=== PATIENT | male | born 2000 | race Caucasian/White ===

== ENCOUNTER 2023-10-08 03:56 | Emergency (ER) | payer OTHER, SELFPAY ==
[2023-10-08 04:42] VITALS: BP 132/88
--- NOTE | 2023-10-08 05:34 | ED.GENMED ---
History of Present Illness
<Bipin Zarco DO - Last Filed: 10/08/23 05:41>
General
Chief Complaint: Sleep Disturbances
Source: patient
Exam Limitations: none
Time Seen by Provider: 10/08/23 05:17
History of Present Illness
History of Present Illness:
Pleasant 23-year-old male presents with anxiety. He states that he has not slept in a few days. Patient has not eaten or drink anything in several hours. Patient states that he has had a poor appetite. He was seen by [facility] earlier this evening.
Patient denies suicidal homicidal ideation, intent, or plan. He is requesting food and water since he has not eaten. He reports no other complaints at this time. Denies chest pain or shortness of breath. Denies any abdominal pain.
Past History
<ST JulioID - Last Filed: >
Past History
ED Past Medical History: Psychiatric (Mood disorder, autism, intermittent violent behavior issues, Anxiety, ODD, ) and Other (Asperger's syndrome)
ED Past Surgical History: None
Social History
Tobacco: Non-smoker
Alcohol: None
Drug: None
Personal: Single
Living: with family
Employment: Not employed
Family History
Family History: Other (Noncontributory)
Phy Exam
<Bipin Zarco DO - Last Filed: 10/08/23 05:41>
General Physical Exam
General Presentation: mild distress
General age: appears older than age
General Habitus: poor hygiene
General Mental: alert
General Hydration: appears well hydrated
Cardiovascular Exam
Cardiovascular Exam: regular rate/rhythm and no edema
Pulmonary Exam
Pulmonary Exam: lungs clear, no respiratory distress and no cough
Gastrointestinal Exam
Gastrointestinal Exam: normal bowel sounds, non tender and soft
Neurological Exam
Neurological Exam: alert and oriented x3
Musculoskeletal Exam
Musculoskeletal Exam: full ROM, no edema and neuro vasc intact
Skin Exam
Skin Exam: normal color and warm/dry
Psychiatric Exam
Psychiatric Exam: anxious and paranoia
Course
<Bipin Zarco DO - Last Filed: 10/08/23 05:41>
Vital Signs
Initial and Last Documented VS:
Initial Vital Signs
Temp Pulse Resp BP Pulse Ox
98.7 F 99 17 132/88 96
10/08/23 04:42 10/08/23 04:42 10/08/23 04:42 10/08/23 04:42 10/08/23 04:42
Last Documented Vital Signs
Temp Pulse Resp BP Pulse Ox
98.7 F 99 17 132/88 96
10/08/23 04:42 10/08/23 04:42 10/08/23 04:42 10/08/23 04:42 10/08/23 04:42
<ALFRED Kim - Last Filed: >
Vital Signs
Initial and Last Documented VS:
Initial Vital Signs
Temp Pulse Resp BP Pulse Ox
98.7 F 99 17 132/88 96
10/08/23 04:42 10/08/23 04:42 10/08/23 04:42 10/08/23 04:42 10/08/23 04:42
Last Documented Vital Signs
Temp Pulse Resp BP Pulse Ox
98.7 F 99 17 132/88 96
10/08/23 04:42 10/08/23 04:42 10/08/23 04:42 10/08/23 04:42 10/08/23 04:42
<Bipin Zarco DO - Last Filed: 10/08/23 05:41>
*Pulse Oximetry
Patient hypoxic: no
*Critical Care Note
Total Time (30-74mins, 75-104mins- exclusive of procedures): Not Applicable
Data Reviewed
Review of Other/Old Records Reveals: Labs, Testing, Progress Notes and Discharge Summary
Source: previous hospital records
ED Attending Note
<ALFRED Kim - Last Filed: >
-
Portions of this chart may have been created with voice recognition software.� Occasional wrong word or��sound alike� substitutions may have occurred due to the inherent limitations of voice recognition software.
Discharge Plan
Departure
Patient Disposition: Home (Routine Discharge)
Date of Disposition: 10/08/23
Time of Disposition: 05:39
Patient with high blood pressure during this ER visit?: Yes
Condition: Good
Discharge Problem:
Hunger pangs, Anxiety
Prescriptions:
No Action
oxcarbazepine 300 MG tablet
300 mg PO BID
risperidone [Risperdal] 1 MG tablet
1 mg PO DAILY
clonidine HCl 0.1 mg Tablet
0.1 mg PO DAILYPRN PRN (Reason: increased agitation)
melatonin 5 mg Tablet
10 mg PO HS
clonidine HCl 0.3 mg Tablet
0.3 mg PO HS
risperidone 2 mg Tablet
4 mg PO HS
Referrals:
UNKNOWN - PT DOES,NOT KNOW [Family Provider] -
Interventions
Interventions:
*Risk Screen - Suicide Last Done: 10/08/23 04:42
*General Assessment Last Done: 10/08/23 04:42
*Neglect/Abuse Screening Last Done: 10/08/23 04:42
ED- Fall Risk Assessment Last Done: 10/08/23 04:42
*ED COVID-19 Vaccine History Last Done: 10/08/23 04:42
ED-Suicide Risk Assessment Last Done: 10/08/23 04:42
ED- Neurological Assessment Last Done: 10/08/23 05:19
ED-Psychological Assessment Last Done: 10/08/23 05:19
Discharge Date and Time
Print Language: SINHALA
== END 2023-10-08 05:53 | disposition home or self-care (01) ==
LOC: EMR 03:56
PROVIDERS: EMERGENCY PHYSICIAN Student in an Organized Health Care Education/Training Program
DX: F41.9 Anxiety disorder, unspecified (principal); R63.8 Other symptoms and signs concerning food and fluid intake; R03.0 Elevated blood-pressure reading, without diagnosis of hypertension
CPT/HCPCS: 99282

== ENCOUNTER 2024-08-30 09:07 | Emergency (ER) | payer OTHER, SELFPAY ==
[2024-08-30 09:22] VITALS: BP 122/95
--- NOTE | 2024-08-30 12:38 | ED.GENMED ---
History of Present Illness
General
Chief Complaint: Crisis Evaluation
Time Seen by Provider: 08/30/24 10:51
History of Present Illness
History of Present Illness:
24-year-old male with history of anxiety presenting for wanting to speak crisis. Patient denies suicidal or homicidal ideations. He notes that he wants to talk about artificial intelligence. Notes generalized back pain. Limited historian.
Denies inciting injury or trauma. No additional history obtained at this time
Past History
Past History
ED Past Medical History: Psychiatric (Mood disorder, autism, intermittent violent behavior issues, Anxiety, ODD, ) and Other (Asperger's syndrome)
ED Past Surgical History: None
Social History
Tobacco: Non-smoker
Alcohol: None
Drug: None
Personal: Single
Living: with family
Employment: Not employed
Family History
Family History: Other (Noncontributory)
Phy Exam
Physical Exam
Physical Exam:
General: Unkept, odiferous
HEENT: protecting airway
Neck: appears supple
CV: Normal heart rate
Resp: No accessory muscle use, no increased work of breathing
Abd: No distention
Extremities: No deformities, no swelling, no erythema
Neuro: alert, no focal neurologic deficit
: deferred
Rectal: deferred
Psych: Normal affect
Skin: Intact
Course
Orders/Labs/Results
Orders:
Orders
08/30/24 10:30
Crisis Consult Urgent
Reason for Consult: anxiety
Vital Signs
Initial and Last Documented VS:
Initial Vital Signs
Temp Pulse Resp BP Pulse Ox
99.1 F 120 20 122/95 95
08/30/24 09:22 08/30/24 09:22 08/30/24 09:22 08/30/24 09:22 08/30/24 09:22
Last Documented Vital Signs
Temp Pulse Resp BP Pulse Ox
99.1 F 120 20 122/95 95
08/30/24 09:22 08/30/24 09:22 08/30/24 09:22 08/30/24 09:22 08/30/24 12:38
MDM/Problems Addressed
MDM/Problems Addressed:
24-year-old male with history of anxiety presenting for crisis. Vital signs significant for tachycardia.
On exam patient resting comfortably, wandering around the emergency department, no acute distress. Patient is conversing with all staff, wanting to speak about artificial intelligence. Notes of generalized low back pain. Unremarkable examination,
with suspected musculoskeletal origin. He denies suicidal or homicidal ideation. In discussion with crisis, I agree with no indication for commitment. Feel stable for continued outpatient resources for underlying anxiety.
*Pulse Oximetry
SaO2: 95
Oxygen Mode of Delivery: Room air
Patient hypoxic: no
*Critical Care Note
Total Time (30-74mins, 75-104mins- exclusive of procedures): Not Applicable
ED Attending Note
-
Portions of this chart may have been created with voice recognition software.� Occasional wrong word or��sound alike� substitutions may have occurred due to the inherent limitations of voice recognition software.
Discharge Plan
Departure
Patient Disposition: Home (Routine Discharge)
Date of Disposition: 08/30/24
Time of Disposition: 12:38
Patient with high blood pressure during this ER visit?: No
Condition: Good
Discharge Problem:
Anxiety
Instructions: Anxiety, Adult (DC)
Prescriptions:
No Action
oxcarbazepine 300 MG tablet
300 mg PO BID
risperidone [Risperdal] 1 MG tablet
1 mg PO DAILY
clonidine HCl 0.1 mg Tablet
0.1 mg PO DAILYPRN PRN (Reason: increased agitation)
melatonin 5 mg Tablet
10 mg PO HS
clonidine HCl 0.3 mg Tablet
0.3 mg PO HS
risperidone 2 mg Tablet
4 mg PO HS
Referrals:
UNKNOWN,NO INTERVIEW [Family Provider]
Activity Restrictions/Additional Instructions:
You were seen in the emergency department for anxiety
You were seen by crisis. We recommend that you follow-up with your therapist outpatient.
Please follow-up closely with your primary care physician.
Return to the emergency department for any worsening of your symptoms, or any development of chest pain, difficulty breathing, abdominal pain with persistent vomiting and inability to tolerate food or liquid by mouth (concern for dehydration),
weakness, headache or confusion, fever greater than 100.4, or any additional symptoms that are concerning to you.
Thank you for choosing [facility].
Interventions
Interventions:
*Risk Screen - Suicide Last Done: 08/30/24 09:10
*General Assessment Last Done: 08/30/24 09:22
*Neglect/Abuse Screening Last Done: 08/30/24 09:22
*ED- Fall Risk Assessment Last Done: 08/30/24 11:44
*ED COVID-19 Vaccine History Last Done: 08/30/24 11:44
ED-Psychological Assessment Last Done: 08/30/24 11:01
Discharge Date and Time
Print Language: URDU
== END 2024-08-30 14:40 | disposition home or self-care (01) ==
LOC: EMR 09:07
PROVIDERS: EMERGENCY PHYSICIAN Student in an Organized Health Care Education/Training Program
DX: F41.9 Anxiety disorder, unspecified (principal); M54.50 Low back pain, unspecified; F84.5 Asperger's syndrome; F42.9 Obsessive-compulsive disorder, unspecified
CPT/HCPCS: 99282

== ENCOUNTER 2024-09-01 21:25 | Emergency (ER) | payer OTHER, SELFPAY ==
--- NOTE | 2024-09-01 21:27 | ED.GENMED ---
History of Present Illness
General
Chief Complaint: Crisis Evaluation
Source: patient
Exam Limitations: none
Time Seen by Provider: 09/01/24 21:27
History of Present Illness
History of Present Illness:
See MDM
Past History
Past History
ED Past Medical History: Psychiatric (Mood disorder, autism, intermittent violent behavior issues, Anxiety, ODD, ) and Other (Asperger's syndrome)
ED Past Surgical History: None
Social History
Tobacco: Non-smoker
Alcohol: None
Drug: None
Personal: Single
Living: with family
Employment: Not employed
Family History
Family History: Other (Noncontributory)
Phy Exam
Physical Exam
Physical Exam:
See MDM
Course
Orders/Labs/Results
Orders:
Orders
09/01/24 21:27
Crisis Consult Urgent
Reason for Consult: depression
MDM/Problems Addressed
Differential Diagnosis Includes:
HPI and MDM Narrative:
24-year-old male presenting to the emergency department requesting a crisis consult. Patient presents with police. Police were called when patient refused to leave the [facility]. Once the police escorted the patient off the premises, he asked
for a ride to the emergency department speak to crisis. He has not on [address] and not in please custody. He denies suicidal thoughts. He is walking around the emergency department in no acute distress
Physical exam
General: Well appearing and non-toxic. Ambulating without difficulty
HEENT: protecting airway
Neck: appears supple
CV: No evidence of cyanosis
Resp: No accessory muscle use
Abd: Non-distended
Extremities: No deformities
Neuro: alert
Psych: Flat affect
Skin: Intact
Problems Addressed including Acute and Chronic Conditions affecting care:
1. Anxiety and depression
Acuity: acute
Prognosis: stable
Details: Will have crisis consult per request of patient.
Updates
11:40 PM Case discussed with crisis who evaluated patient and patient stable for discharge from the crisis standpoint
Differential Diagnosis (but not limited to): Mood disorder, anxiety, depression
Testing considered: UDS
Drug therapy (if applicable): OTC meds, please see d/c instruction regarding Rx drugs
Amount and/or Complexity of Data Reviewed
Clinical info obtained from: Patient
External data reviewed: N/A
Labs I independently reviewed (but not limited to): N/A
Radiology: N/A
Pulse Ox: not hypoxic
EKG independently reviewed: N/A
[employer] Room Attendant: N/A
Critical Care: N/A
Risk of Complication:
Social Determinants of health: Good social support
Discussed with other providers: N/A
Escalation of Care includes Admit/Obs: After being observed in the Emergency Department, pt stable for discharge.
Occasional wrong word or 'sound a like' substitutions may have occurred due to the inherent limitations of voice recognition software. Read the chart carefully and recognize, using context, where substitutions have occurred.
*Pulse Oximetry
Patient hypoxic: no
*Critical Care Note
Total Time (30-74mins, 75-104mins- exclusive of procedures): Not Applicable
ED Attending Note
-
Portions of this chart may have been created with voice recognition software.� Occasional wrong word or��sound alike� substitutions may have occurred due to the inherent limitations of voice recognition software.
Discharge Plan
Departure
Patient Disposition: Home (Routine Discharge)
Date of Disposition: 09/01/24
Time of Disposition: 23:40
Patient with high blood pressure during this ER visit?: No
Discharge Problem:
Depression
Instructions: Depression, Adult (DC)
Prescriptions:
No Action
oxcarbazepine 300 MG tablet
300 mg PO BID
risperidone [Risperdal] 1 MG tablet
1 mg PO DAILY
clonidine HCl 0.1 mg Tablet
0.1 mg PO DAILYPRN PRN (Reason: increased agitation)
melatonin 5 mg Tablet
10 mg PO HS
clonidine HCl 0.3 mg Tablet
0.3 mg PO HS
risperidone 2 mg Tablet
4 mg PO HS
Referrals:
UNKNOWN,NO INTERVIEW [Family Provider]
Activity Restrictions/Additional Instructions:
Please return for any worsening symptoms.
You may return at any time if you have further concerns.
Please follow up with your primary care doctor and psychiatrist at the first available appointment, preferably this week.
Interventions
Interventions:
*Risk Screen - Suicide Last Done: 09/01/24 21:34
*General Assessment Last Done: 09/01/24 21:34
*Neglect/Abuse Screening Last Done: 09/01/24 21:41
*ED- Fall Risk Assessment Last Done: 09/01/24 21:41
*ED COVID-19 Vaccine History Last Done: 09/01/24 21:41
ED-Psychological Assessment Last Done: 09/01/24 21:41
Discharge Date and Time
Print Language: MOHAWK
== END 2024-09-02 00:55 | disposition home or self-care (01) ==
LOC: EMR 21:25
PROVIDERS: EMERGENCY PHYSICIAN Student in an Organized Health Care Education/Training Program
DX: F32.A Depression, unspecified (principal); F84.5 Asperger's syndrome; F41.9 Anxiety disorder, unspecified; F91.3 Oppositional defiant disorder; Z88.8 Allergy status to other drugs, medicaments and biological substances; Z91.012 Allergy to eggs
CPT/HCPCS: 99282

== ENCOUNTER 2024-09-02 08:51 | Emergency (ER) | payer OTHER, SELFPAY ==
[2024-09-02 08:57] VITALS: BP 140/100
--- NOTE | 2024-09-02 09:51 | CM ---
CM reviewed chart and met with pt bedside in ED. Pt confirms he lives with his mother in apartment in [place] but has not been there for 4 days, states he went on a tour to [facility] and a few other places in [place]. He wants to see the ED
physician and possibly talk to Crisis. He also wants to take a shower and order food. I offered him a sandwich but he said he need real food. Charge nurse and pt's nurse Halie vaughan.
--- NOTE | 2024-09-02 10:07 | ED.GENMED ---
History of Present Illness
<Rhianna Fischer PA-C - Last Filed: 09/02/24 18:26>
General
Chief Complaint: Social Service Referral
Source: patient
Exam Limitations: none
Time Seen by Provider: 09/02/24 09:39
Nursing documentation reviewed up to this point in time: agreed with
History of Present Illness
History of Present Illness:
24 y/o M
with h/o ODD, autism, nystagmus
here from [facility] via EMS
unclear why he was picked up
pt apparently has housing with his mother but hasn't been there in several days
he initially requested a shower and a sandwich
when i spoke to him he said he vomited and had a fever and abdominla pain
yet, he is requesting food and has a turkey sandwich given to him by ED RN
Past History
<Rhianna Fischer PA-C - Last Filed: 09/02/24 18:26>
Past History
ED Past Medical History: Psychiatric (Mood disorder, autism, intermittent violent behavior issues, Anxiety, ODD, ) and Other (Asperger's syndrome)
ED Past Surgical History: None
Social History
Tobacco: Non-smoker
Alcohol: None
Drug: None
Personal: Single
Living: with family
Employment: Not employed
Family History
Family History: Other (Noncontributory)
Phy Exam
<Rhianna Fischer PA-C - Last Filed: 09/02/24 18:26>
Physical Exam
Physical Exam:
GENERAL: Alert , disheveled, malodorous
EYE: constant nystagmus
NECK: Supple
ENT: o/p clr, mmm.
CARDIAC: Regular rate and rhythm .
LUNGS: Clear breath sounds bilaterally, no acute respiratory distress, no wheezes/rales/rhonchi
ABDOMEN: Soft, without focal tenderness, no r/g, no cvat, normal bowel sounds
NEUROLOGICAL: Alert and oriented, no focal neuro deficits
SKIN: Warm and dry, skin intact.
MUSCULOSKELETAL: No edema, well perfused. neg fabio's sign
PSYCH: coopearitve
Course
<Rhianna Fischer PA-C - Last Filed: 09/02/24 18:26>
Orders/Labs/Results
Orders:
Orders
09/02/24 10:23
Acetaminophen [Tylenol] 650 mg PO NOW STA
09/02/24 10:39
COVID-19 Antigen Urgent
Source: Nasal Swab
09/02/24 12:09
Crisis Consult Urgent
Reason for Consult: behavioral disturbance
09/02/24 13:00
Risperidone [Risperdal] 1 mg PO NOW STA
09/02/24 13:31
Clonidine [Catapres] 0.1 mg PO NOW STA
Vital Signs
Temp: 37.9 C
Initial and Last Documented VS:
Initial Vital Signs
Temp Pulse Resp BP Pulse Ox
36.7 C 110 18 140/100 98
09/02/24 08:57 09/02/24 08:57 09/02/24 08:57 09/02/24 08:57 09/02/24 08:57
Last Documented Vital Signs
Temp Pulse Resp BP Pulse Ox
36.8 C 104 18 146/89 98
09/02/24 11:49 09/02/24 13:45 09/02/24 08:57 09/02/24 13:45 09/02/24 10:10
<Bipin Salguero DO - Last Filed: 09/02/24 10:26>
Orders/Labs/Results
Orders:
Orders
09/02/24 10:23
Acetaminophen [Tylenol] 650 mg PO NOW STA
09/02/24 10:39
COVID-19 Antigen Urgent
Source: Nasal Swab
09/02/24 12:09
Crisis Consult Urgent
Reason for Consult: behavioral disturbance
09/02/24 13:00
Risperidone [Risperdal] 1 mg PO NOW STA
09/02/24 13:31
Clonidine [Catapres] 0.1 mg PO NOW STA
Vital Signs
Initial and Last Documented VS:
Initial Vital Signs
Temp Pulse Resp BP Pulse Ox
36.7 C 110 18 140/100 98
09/02/24 08:57 09/02/24 08:57 09/02/24 08:57 09/02/24 08:57 09/02/24 08:57
Last Documented Vital Signs
Temp Pulse Resp BP Pulse Ox
36.8 C 104 18 146/89 98
09/02/24 11:49 09/02/24 13:45 09/02/24 08:57 09/02/24 13:45 09/02/24 10:10
<Rhianna Fischer PA-C - Last Filed: 09/02/24 18:26>
MDM/Problems Addressed
Differential Diagnosis Includes:
viral illness, infection, dehydration, anxiety,
MDM/Problems Addressed:
24 y/o M
mental illness
autistic
behavioral issues
here for 3rd visit in several days requesting rn social work, shower, food etc
pt lives with mother but hasn't been home in a few days
according to mother, he hasn't taken his meds and has been reactive and causing problems at home and then was at local restaruatns and refusing to leave
here he is coopeartive but rather manipulative
he had tachycardia, which brielfly could have been due to low grad etemp
has some tongue lesions that look viral
seen by ed attending, tested for covid and neg
was eating despite complainig of abd nathaly and was reeamined to have no tenderness
mother called and tried to file 302 but it was denied
crisis consult placed
pt is not SI/HI
he will be discharged
<Rhianna Fischer PA-C - Last Filed: 09/02/24 18:26>
*Pulse Oximetry
SaO2: 98
Oxygen Mode of Delivery: Room air
Patient hypoxic: no
*Critical Care Note
Total Time (30-74mins, 75-104mins- exclusive of procedures): Not Applicable
ED Attending Note
<Rhianna Fischer PA-C - Last Filed: 09/02/24 18:26>
-
Portions of this chart may have been created with voice recognition software.� Occasional wrong word or��sound alike� substitutions may have occurred due to the inherent limitations of voice recognition software.
<Bipin Salguero DO - Last Filed: 09/02/24 10:26>
ED Attending Note
Patient seen and examined by attending physician: Yes
I performed the substantive portion of visit, reviewed & personally made and approve the management plan that is documented in note by myself or SYLVESTER.: Yes
ED Attending Note:
Patient presents to the emergency room requesting a place to sleep. He states he has not been in his house for several days and needs to stay here for 3 days. Patient states he needs a place to sleep. Patient has bizarre affect.
General: Awake, Alert, Oriented X3. No acute distress.
Vitals: unremarkable
Head: Atraumatic
Eyes: Pupils equal, EOMI
Throat: Airway intact, no exudates
Neck: Trachea midline
Lungs: Clear and equal b/l
Heart: Regular rate, no murmurs
Abd: Soft, Nontender, No pulsatile mass
Neuro: Nonfocal
Skin: Warm, dry, no rash
Extremities: pulses equal b/l, no edema
Patient requesting some place to sleep. Does have a oral temp approaching a fever. Likely viral. Will obtain a COVID swab.
Discharge Plan
Departure
Patient Disposition: Home (Routine Discharge)
Date of Disposition: 09/02/24
Time of Disposition: 13:39
Patient with high blood pressure during this ER visit?: Yes
Condition: Fair
Covid-19: Not Applicable
Discharge Problem:
Encounter for medical screening examination, Anxiety, Acute viral syndrome
Instructions: Anxiety in adults - ED discharge instructions, BLOOD PRESSURE
Prescriptions:
No Action
oxcarbazepine 300 MG tablet
300 mg PO BID
risperidone [Risperdal] 1 MG tablet
1 mg PO DAILY
clonidine HCl 0.1 mg Tablet
0.1 mg PO DAILYPRN PRN (Reason: increased agitation)
melatonin 5 mg Tablet
10 mg PO HS
clonidine HCl 0.3 mg Tablet
0.3 mg PO HS
risperidone 2 mg Tablet
4 mg PO HS
Referrals:
Rafa Meneses, DO [Primary Care Provider, Family Practice]
Activity Restrictions/Additional Instructions:
You need to take your chronic medications to help with your mental state. You may have a viral syndrome with a low-grade temperature but you were COVID-negative. You were evaluated by crisis today. Follow-up with your psychiatrist
Interventions
Interventions:
*Risk Screen - Suicide Last Done: 09/02/24 08:57
*Neglect/Abuse Screening Last Done: 09/02/24 08:57
Discharge Date and Time
Print Language: MAORI
[2024-09-02] MEDS: TYLENOL 1 MG PO (10:43)
[2024-09-02 11:12] LABS: COVID-19 Antigen Negative (Negative)
[2024-09-02] MEDS: RISPERDAL 1 MG PO (13:45)
[2024-09-02] MEDS: CATAPRES 0.1 MG PO (13:45)
== END 2024-09-02 16:00 | disposition home or self-care (01) ==
LOC: EMR 08:51
PROVIDERS: EMERGENCY PHYSICIAN Emergency Medicine; PRIMARYCARE PHYSICIAN Family Medicine
DX: R50.9 Fever, unspecified (principal); R11.10 Vomiting, unspecified; R10.9 Unspecified abdominal pain; B34.9 Viral infection, unspecified; F41.9 Anxiety disorder, unspecified; Z11.52 Encounter for screening for COVID-19; Z02.79 Encounter for issue of other medical certificate; R03.0 Elevated blood-pressure reading, without diagnosis of hypertension; R00.0 Tachycardia, unspecified; K13.70 Unspecified lesions of oral mucosa; F84.5 Asperger's syndrome; F91.3 Oppositional defiant disorder; H55.00 Unspecified nystagmus; F39 Unspecified mood [affective] disorder; Z88.8 Allergy status to other drugs, medicaments and biological substances; Z91.012 Allergy to eggs
CPT/HCPCS: 99283; 81003; 81015; 87086; 87811

== ENCOUNTER 2024-09-02 22:28 | Emergency (ER) | payer OTHER, SELFPAY ==
[2024-09-02 22:31] VITALS: BP 113/83
--- NOTE | 2024-09-03 02:00 | ED.GENMED ---
History of Present Illness
General
Chief Complaint: Social Service Referral
Source: patient
Exam Limitations: none
Time Seen by Provider: 09/03/24 00:34
Nursing documentation reviewed up to this point in time: agreed with
History of Present Illness
History of Present Illness:
24-year-old male presenting to the emergency department today mainly seeking to use a shower. Patient has been to the ER multiple times in the last day or so. He was seen by crisis but unable to be placed and did not qualify for 302. Claims that
he thinks might have a UTI but denies any specific urinary symptoms. Claims that he is concerned of his leaky gut and claims that his stool has been slightly loose but denies any abdominal pain or any significant diarrhea.
Past History
Past History
ED Past Medical History: Psychiatric (Mood disorder, autism, intermittent violent behavior issues, Anxiety, ODD, ) and Other (Asperger's syndrome)
ED Past Surgical History: None
Social History
Tobacco: Non-smoker
Alcohol: None
Drug: None
Personal: Single
Living: with family
Employment: Not employed
Family History
Family History: Other (Noncontributory)
Review of Systems
Review of Systems
Allergies reviewed?: Yes
All Other Systems: ROS reviewed and negative except as documented in HPI and ROS
Phy Exam
Physical Exam
Physical Exam:
GENERAL: Alert , in no apparent distress
EYE: pupils equal and reactive
NECK: Supple, no significant adenopathy.
ENT: o/p clr, mmm.
CARDIAC: Regular rate and rhythm .
LUNGS: Clear breath sounds bilaterally, no acute respiratory distress, no wheezes/rales/rhonchi
ABDOMEN: Soft, without focal tenderness, no r/g, no cvat
NEUROLOGICAL: Alert and oriented, no focal neuro deficits
SKIN: Warm and dry, skin intact.
MUSCULOSKELETAL: No edema, well perfused.
PSYCH: Tangential
Course
Orders/Labs/Results
Orders:
Orders
09/03/24 02:03
Urinalysis Reflex To Culture Urgent
Date Specimen was Collected: 09/03/24
Time Specimen was Collected: 02:03
Urine Microscopic Reflex Cult Urgent
Urine Culture Urgent
AI Source: U
Specimen Description:
Date Specimen was Collected: 09/03/24
Time Specimen was Collected: 02:03
Abnormal Lab Results
09/03/24
02:03
Urine Ketones 2+ A
(Negative)
Ur Occult Blood Reflex 1+ A
(Negative)
Leukocyte Esterase Rfl 1+ A
(Negative)
Urine Albumin (Reflex) 2+ A
(Neg - Trace)
Vital Signs
Initial and Last Documented VS:
Initial Vital Signs
Temp Pulse Resp BP Pulse Ox
99.3 F 113 18 113/83 95
09/02/24 22:31 09/02/24 22:31 09/02/24 22:31 09/02/24 22:31 09/02/24 22:31
Last Documented Vital Signs
Temp Pulse Resp BP Pulse Ox
99.3 F 113 18 113/83 95
09/02/24 22:31 09/02/24 22:31 09/02/24 22:31 09/02/24 22:31 09/03/24 02:02
MDM/Problems Addressed
MDM/Problems Addressed:
24-year-old male presenting to the emergency department seeking something to drink and want to take a shower. Also thinks he has a UTI but unable to elaborate on any specific urinary symptoms. Patient well-appearing throughout ER stay in no
distress walking around the exam room able to drink without difficulty. Urinalysis without emergent findings does +1 occult blood and ketones patient vies for close outpatient follow-up for further assessment of this.
*Pulse Oximetry
SaO2: 95
Oxygen Mode of Delivery: Room air
Patient hypoxic: no (95)
*Critical Care Note
Total Time (30-74mins, 75-104mins- exclusive of procedures): Not Applicable
ED Attending Note
-
Portions of this chart may have been created with voice recognition software.� Occasional wrong word or��sound alike� substitutions may have occurred due to the inherent limitations of voice recognition software.
Discharge Plan
Departure
Patient Disposition: Home (Routine Discharge)
Date of Disposition: 09/03/24
Time of Disposition: 02:22
Patient with high blood pressure during this ER visit?: No
Condition: Good
Covid-19: Not Applicable
Discharge Problem:
Encounter for medical screening examination, Urine abnormality
Prescriptions:
No Action
oxcarbazepine 300 MG tablet
300 mg PO BID
risperidone [Risperdal] 1 MG tablet
1 mg PO DAILY
clonidine HCl 0.1 mg Tablet
0.1 mg PO DAILYPRN PRN (Reason: increased agitation)
melatonin 5 mg Tablet
10 mg PO HS
clonidine HCl 0.3 mg Tablet
0.3 mg PO HS
risperidone 2 mg Tablet
4 mg PO HS
Referrals:
[facility] [Provider Group]
UNKNOWN - PT DOES,NOT KNOW [Family Provider]
Activity Restrictions/Additional Instructions:
You came to the emergency department today with multiple concerns. Your urinalysis does not show anything emergent does not a very small amount of blood that was detected you should have this repeated as an outpatient in the next few weeks. Return
for any worsening, new or concerning symptoms.
Interventions
Interventions:
*Risk Screen - Suicide Last Done: 09/02/24 22:31
*General Assessment Last Done: 09/02/24 22:31
*Neglect/Abuse Screening Last Done: 09/02/24 22:31
ED-Psychological Assessment Last Done: 09/03/24 00:11
Discharge Date and Time
Print Language: AZERI
[2024-09-03 02:12] LABS: Urine Character Slightly Cloudy (Clear)
== END 2024-09-03 02:45 | disposition home or self-care (01) ==
LOC: EMR 22:28
PROVIDERS: Physician Assistant; EMERGENCY PHYSICIAN Emergency Medicine
DX: R19.7 Diarrhea, unspecified (principal); R82.90 Unspecified abnormal findings in urine; Z02.79 Encounter for issue of other medical certificate; F84.5 Asperger's syndrome; F41.9 Anxiety disorder, unspecified; F91.3 Oppositional defiant disorder; F39 Unspecified mood [affective] disorder; Z88.8 Allergy status to other drugs, medicaments and biological substances; Z91.012 Allergy to eggs
CPT/HCPCS: 99283; 81003; 81015; 87086

== ENCOUNTER 2024-10-01 04:26 | Emergency (ER) | payer OTHER, SELFPAY ==
[2024-10-01 04:37] VITALS: BP 129/89
--- NOTE | 2024-10-01 05:44 | EDRN ---
Pt with rambling speech changing subjects quickly. Pt asked about going over to crisis so this RN called crisis and was informed pt is not allowed over there any more because he is destructive. Pt rearranged furniture in ED room, turned on cardiac
monitor. Pt was redirected to his room few times by staff as he was found wandering in the hallway. Pt attempted to follow this RN into another patient's room. Pt able to be redirected easily. Pt made numerous attempts to remain in the ED -
wanted to order breakfast (not open), take a shower, get mouthwash, make juice from fresh fruit, had to put the furniture back, put his sock on, wash his hands. Pt requested a mask for the waiting room which was provided. Pt given an envelope to
put his paperwork in. This RN walked with pt to ED exit. On the way, this RN gave pt fresh ice water to drink. Pt told he can wait in the waiting room as long as he is respectful to staff that are working and other patients. Pt said he
understood this. Pt would not let this RN call his mother to pick him up.
== END 2024-10-01 05:35 | disposition home or self-care (01) ==
LOC: EMR 04:26
PROVIDERS: EMERGENCY PHYSICIAN Emergency Medicine
DX: F41.9 Anxiety disorder, unspecified (principal); F84.5 Asperger's syndrome
CPT/HCPCS: 99282

== ENCOUNTER 2024-10-01 08:32 | Emergency (ER) | payer OTHER, SELFPAY ==
[2024-10-01 08:40] VITALS: BP 120/85
--- NOTE | 2024-10-01 09:21 | ED.GENMED ---
History of Present Illness
General
Chief Complaint: Anxiety
Time Seen by Provider: 10/01/24 09:00
History of Present Illness
History of Present Illness:
See MDM
Past History
Past History
ED Past Medical History: Psychiatric (Mood disorder, autism, intermittent violent behavior issues, Anxiety, ODD, ) and Other (Asperger's syndrome)
ED Past Surgical History: None
Social History
Tobacco: Non-smoker
Alcohol: None
Drug: None
Personal: Single
Living: with family
Employment: Not employed
Family History
Family History: Other (Noncontributory)
Phy Exam
Physical Exam
Physical Exam:
See MDM
Course
Vital Signs
Initial and Last Documented VS:
Initial Vital Signs
Temp Pulse Resp BP Pulse Ox
98.2 F 112 16 120/85 98
10/01/24 08:40 10/01/24 08:40 10/01/24 08:40 10/01/24 08:40 10/01/24 08:40
Last Documented Vital Signs
Temp Pulse Resp BP Pulse Ox
98.2 F 112 16 120/85 98
10/01/24 08:40 10/01/24 08:40 10/01/24 08:40 10/01/24 08:40 10/01/24 08:40
MDM/Problems Addressed
Differential Diagnosis Includes:
Note:
CHIEF COMPLAINT(S)
Chest pain
HISTORY OF PRESENT ILLNESS
The patient is a 24-year-old male who presents to the emergency department for evaluation of chest pain. He has a history of multiple visits to the emergency room for various complaints. Recently, the patient left the emergency department but
returned, indicating he wanted to have breakfast. He called the police, who then escorted him to EMS, and subsequently brought him back to the emergency department for further evaluation. Upon examination, the patient was observed eating a box lunch
provided by the facility and displayed no signs of acute distress while walking around. The patient expressed a desire to stay in the emergency department to rest. Given the chest pain complaint, a screening electrocardiogram (EKG) will be
performed. The patient denies any suicidal or homicidal ideation.
PHYSICAL EXAM
General: Alert, no acute distress.
Skin: Warm, dry.
Head: Normocephalic, atraumatic.
Neck: Supple, trachea midline.
Eye Ears, nose, mouth, and throat: Oral mucosa moist.
Cardiovascular: Normal peripheral perfusion, No edema. Mild tachycardia but no murmur
Respiratory: Respirations are non-labored.
Gastrointestinal: Abdomen nondistended
Musculoskeletal: No lower leg edema or tenderness
Neurological: Alert and oriented to person, place, time, and situation, No focal neurological deficit observed.
Psychiatric: becoming increasingly agitated
PLAN
Perform a screening EKG to evaluate the patient�s complaint of chest pain.
DIFFERENTIAL DIAGNOSIS
The Differential Diagnosis includes, in no particular order and is not limited to:
1. Gastroesophageal reflux disease
2. Costochondritis
3. Musculoskeletal strain
4. Anxiety-related chest pain
5. Peptic ulcer disease
CARE-UPDATE
10/01/24 - :11
During the procedure, the patient became hyper and agitated and subsequently developed sinus tachycardia. He denies experiencing chest pain or shortness of breath. However, he is displaying threatening behavior, specifically by menacing the nurse
for not providing a fatima, egg, and cheese sandwich. The patients aggression and agitation are escalating, and he is not adhering to the hospitals code of conduct despite multiple requests. Security staff is present at the bedside, and arrangements
are being made to involve the police to escort him from the premises due to the disruptive behavior if he does not comply.
CARE-UPDATE
10/01/24 - :19
Patient left the emergency department without signs of acute distress, consistently denying chest pain or shortness of breath. He shows more concern about meals than any present symptoms, despite currently consuming a box lunch.
EKG
My independent EKG interpretation is:
- Time of EKG: Not specified
- Rhythm: Sinus tachycardia
- Heart Rate: 123 beats per minute
- OH Interval: Within normal limits
- QRS Duration: Within normal limits
- QT Interval: Within normal limits
- Hoffmeister: Normal
- Abnormalities: No ST-segment elevations (no STEMI)
Disposition:
SUMMARY OF ENCOUNTER
The patient is a 24-year-old male who presented to the emergency department with a complaint of chest pain. Despite presenting with chest pain, he denied experiencing any pain or shortness of breath during evaluation. He became extremely agitated,
which likely contributed to his tachycardia. The patient has a well-documented mental health disorder characterized by mood swings and aggressive behavior. An electrocardiogram (EKG) was performed to assess for any acute cardiac issues. The EKG
revealed sinus tachycardia without any ST-segment elevations, indicating no acute myocardial infarction. The patients agitation was managed, and after being deemed stable and comfortable, he was discharged from the emergency department.
DISPOSITION
Discharge.
ASSESSMENT
The patient presented with non-cardiac chest pain likely related to anxiety or agitation, as well as sinus tachycardia secondary to agitation. There is no evidence of deep vein thrombosis (DVT) or acute coronary syndrome.
INDEPENDENT REVIEW OF LABS AND INTERPRETATION OF TESTS
My independent EKG interpretation is sinus tachycardia with a heart rate of 123 beats per minute, OH Interval, QRS Duration, and QT Interval all within normal limits. There are no ST-segment elevations, and the axis is normal.
PATIENT EDUCATION AND COUNSELING
The patient was advised on the importance of managing his mood swings and maintaining follow-up with mental health services. He was also informed about potential triggers for his symptoms and encouraged to return to the emergency department if his
condition worsens.
MEDICAL DECISION MAKING
-Complexity of Data Reviewed: The patients non-cardiac chest pain and tachycardia are likely related to his well-known mental health disorder and agitation. Differential diagnoses considered included gastroesophageal reflux disease, costochondritis,
musculoskeletal strain, anxiety-related chest pain, and peptic ulcer disease.
-Data:
Category 1
My independent interpretation of EKG.
Category 3
Consideration was given to involving law enforcement due to the patients aggressive behavior, but he was ultimately managed without police intervention.
DIAGNOSIS
- R07.89 Other chest pain
- F41.0 Panic disorder without agoraphobia
*Pulse Oximetry
SaO2: 98
Oxygen Mode of Delivery: Room air
Patient hypoxic: no
*Critical Care Note
Total Time (30-74mins, 75-104mins- exclusive of procedures): Not Applicable
ED Attending Note
-
Portions of this chart may have been created with voice recognition software.� Occasional wrong word or��sound alike� substitutions may have occurred due to the inherent limitations of voice recognition software.
Discharge Plan
Departure
Patient Disposition: Home (Routine Discharge)
Date of Disposition: 10/01/24
Time of Disposition: 09:11
Patient with high blood pressure during this ER visit?: No
Discharge Problem:
Chest pain
Instructions: Anxiety, Adult (DC), Chest pain - Discharge instructions
Prescriptions:
No Action
oxcarbazepine 300 MG tablet
300 mg PO BID
risperidone [Risperdal] 1 MG tablet
1 mg PO DAILY
clonidine HCl 0.1 mg Tablet
0.1 mg PO DAILYPRN PRN (Reason: increased agitation)
melatonin 5 mg Tablet
10 mg PO HS
clonidine HCl 0.3 mg Tablet
0.3 mg PO HS
risperidone 2 mg Tablet
4 mg PO HS
Referrals:
UNKNOWN - PT NOT,INTERVIEWE [Unknown Provider]
Activity Restrictions/Additional Instructions:
Please return for any worsening symptoms.
You may return at any time if you have further concerns.
Please follow up with your doctor at the first available appointment, preferably this week.
Interventions
Interventions:
*Risk Screen - Suicide Last Done: 10/01/24 08:40
*General Assessment Last Done: 10/01/24 09:10
*Neglect/Abuse Screening Last Done: 10/01/24 08:40
*ED- Fall Risk Assessment Last Done: 10/01/24 08:57
*ED COVID-19 Vaccine History Last Done: 10/01/24 08:57
ED-Psychological Assessment Last Done: 10/01/24 09:04
Discharge Date and Time
Print Language: HEBREW
== END 2024-10-01 09:20 | disposition home or self-care (01) ==
LOC: EMR 08:32
PROVIDERS: EMERGENCY PHYSICIAN Student in an Organized Health Care Education/Training Program; PRIMARYCARE PHYSICIAN Family Medicine
DX: R07.89 Other chest pain (principal); F41.0 Panic disorder [episodic paroxysmal anxiety]; F84.5 Asperger's syndrome
CPT/HCPCS: 93005; 99283

== ENCOUNTER 2024-10-01 17:06 | Emergency (ER) | payer OTHER, SELFPAY ==
--- NOTE | 2024-10-01 19:30 | ED.GENMED ---
History of Present Illness
General
Chief Complaint: Psychiatric Problem
Source: patient and family
Exam Limitations: none
Time Seen by Provider: 10/01/24 18:20
Nursing documentation reviewed up to this point in time: agreed with
History of Present Illness
History of Present Illness:
24-year-old male presents due to anxiety mother concerned of increasing delusional thoughts. She called a 302 that was not upheld.
Past History
Past History
ED Past Medical History: Psychiatric (Mood disorder, autism, intermittent violent behavior issues, Anxiety, ODD, ) and Other (Asperger's syndrome)
ED Past Surgical History: None
Social History
Tobacco: Non-smoker
Alcohol: None
Drug: None
Personal: Single
Living: with family
Employment: Not employed
Family History
Family History: Other (Noncontributory)
Phy Exam
Physical Exam
Physical Exam:
Physical Exam
General: no apparent distress, not acutely ill
Neck: supple. no meningeal signs. normal posterior pharynx
Heart: s1/s2 regular rate and rhythm, no murmur. equal radial
pulses.
HEENT: Pupils equal round reactive to light, EOMI
Lungs: no acute respiratory distress. clear bilaterally
Abdomen: normal bowel sounds. not tender. no CVAT
Neuro: alert and oriented. no focal neurological deficits cranial nerves II through XII intact
Skin: no rash
Psychiatric: well kept. interactive and cooperative
Extremities: no edema. no calf tenderness. negative homans. good distal pulses
MDM/Problems Addressed
MDM/Problems Addressed:
24-year-old male with anxiety. No threats of harm to self or others. Stable for discharge.
Chronic conditions affecting care: Other (Autism)
*Pulse Oximetry
Oxygen Mode of Delivery: Room air
Patient hypoxic: not evaluated
*Critical Care Note
Total Time (30-74mins, 75-104mins- exclusive of procedures): Not Applicable
ED Attending Note
-
Portions of this chart may have been created with voice recognition software.� Occasional wrong word or��sound alike� substitutions may have occurred due to the inherent limitations of voice recognition software.
Discharge Plan
Departure
Patient Disposition: Home (Routine Discharge)
Date of Disposition: 10/01/24
Time of Disposition: 19:30
Patient with high blood pressure during this ER visit?: No
Condition: Good
Discharge Problem:
Anxiety
Instructions: Generalized Anxiety Disorder (DC)
Prescriptions:
No Action
oxcarbazepine 300 MG tablet
300 mg PO BID
risperidone [Risperdal] 1 MG tablet
1 mg PO DAILY
clonidine HCl 0.1 mg Tablet
0.1 mg PO DAILYPRN PRN (Reason: increased agitation)
melatonin 5 mg Tablet
10 mg PO HS
clonidine HCl 0.3 mg Tablet
0.3 mg PO HS
risperidone 2 mg Tablet
4 mg PO HS
Referrals:
Rafa Meneses DO [Family Provider, Family Practice] - Call in 1-3 days for appt
Interventions
Interventions:
*Risk Screen - Suicide Last Done: 10/01/24 17:33
*General Assessment Last Done: 10/01/24 17:12
*Neglect/Abuse Screening Last Done: 10/01/24 17:33
*ED- Fall Risk Assessment Last Done: 10/01/24 17:33
*ED COVID-19 Vaccine History Last Done: 10/01/24 17:33
*Nursing Disposition Last Done: 10/01/24 19:34
ED-Psychological Assessment Last Done: 10/01/24 17:33
Discharge Date and Time
Discharge Date/Time: 10/01/24 19:35
Print Language: MOHAWK
--- NOTE | 2024-10-06 09:39 | ED.GENMED ---
History of Present Illness
General
Chief Complaint: Psychiatric Problem
Source: patient
Exam Limitations: none
Time Seen by Provider: 10/01/24 18:20
Nursing documentation reviewed up to this point in time: agreed with
History of Present Illness
History of Present Illness:
24-year-old male presents with fast heart rate, multiple visits recently with the same is asking for food
Past History
Past History
ED Past Medical History: Psychiatric (Mood disorder, autism, intermittent violent behavior issues, Anxiety, ODD, ) and Other (Asperger's syndrome)
ED Past Surgical History: None
Social History
Tobacco: Non-smoker
Alcohol: None
Drug: None
Personal: Single
Living: with family
Employment: Not employed
Family History
Family History: Other (Noncontributory)
Review of Systems
Review of Systems
All Other Systems: Not applicable
Cardiac: Reports palpitations
Phy Exam
Physical Exam
Physical Exam:
Physical Exam
General: Disheveled mentally ill male walking around asking for food
Neck: No jaw
Heart: Regular
Lungs: no acute respiratory distress.
Neuro: alert and oriented. no focal neurological deficits
Skin: no rash
Psychiatric: Disheveled
Extremities: no edema.
MDM/Problems Addressed
Differential Diagnosis Includes:
Mental illness dehydration malingering
MDM/Problems Addressed:
Mental illness malingering
Chronic conditions affecting care: Neurological disorder and Psychiatric illness
Acute Exacerbation and/or Progression of Chronic Illness: Neurological disorder and Psychiatric illness
*Pulse Oximetry
SaO2: 99
Oxygen Mode of Delivery: Room air
Patient hypoxic: no
*Critical Care Note
Total Time (30-74mins, 75-104mins- exclusive of procedures): Not Applicable
Update Note
Update Note:
Update, multi visits with the same
ED Attending Note
-
Portions of this chart may have been created with voice recognition software.� Occasional wrong word or��sound alike� substitutions may have occurred due to the inherent limitations of voice recognition software.
Discharge Plan
Departure
Patient Disposition: Home (Routine Discharge)
Date of Disposition: 10/01/24
Time of Disposition: 19:30
Patient with high blood pressure during this ER visit?: No
Condition: Good
Discharge Problem:
Anxiety
Instructions: Generalized Anxiety Disorder (DC)
Prescriptions:
No Action
oxcarbazepine 300 MG tablet
300 mg PO BID
risperidone [Risperdal] 1 MG tablet
1 mg PO DAILY
clonidine HCl 0.1 mg Tablet
0.1 mg PO DAILYPRN PRN (Reason: increased agitation)
melatonin 5 mg Tablet
10 mg PO HS
clonidine HCl 0.3 mg Tablet
0.3 mg PO HS
risperidone 2 mg Tablet
4 mg PO HS
Referrals:
Rafa Meneses DO [Family Provider, Family Practice] - Call in 1-3 days for appt
Interventions
Interventions:
*Risk Screen - Suicide Last Done: 10/01/24 17:33
*General Assessment Last Done: 10/01/24 17:12
*Neglect/Abuse Screening Last Done: 10/01/24 17:33
*ED- Fall Risk Assessment Last Done: 10/01/24 17:33
*ED COVID-19 Vaccine History Last Done: 10/01/24 17:33
*Nursing Disposition Last Done: 10/01/24 19:34
ED-Psychological Assessment Last Done: 10/01/24 17:33
Discharge Date and Time
Discharge Date/Time: 10/01/24 19:35
Print Language: UKRAINIAN
== END 2024-10-01 19:35 | disposition home or self-care (01) ==
LOC: EMR 17:06
PROVIDERS: EMERGENCY PHYSICIAN Emergency Medicine; FAMILY PHYSICIAN Family Medicine
DX: F41.9 Anxiety disorder, unspecified (principal); F84.5 Asperger's syndrome
CPT/HCPCS: 99283

== ENCOUNTER 2024-10-01 23:31 | Emergency (ER) | payer OTHER, SELFPAY ==
[2024-10-01 23:32] VITALS: BP 138/82
--- NOTE | 2024-10-01 23:44 | ED.GENMED ---
History of Present Illness
General
Chief Complaint: Anxiety
Source: patient
Exam Limitations: none
Nursing documentation reviewed up to this point in time: agreed with
History of Present Illness
History of Present Illness:
This is the note for the 4:30 AM visit on 10/01/2024
Patient was seen soon after his arrival, late entry into the EMR
24-year-old male via EMS presents with chest pain, when I evaluated him he appeared disheveled, was asking for sara brittany, asking for a box lunch, history of mental illness and autism
Past History
Past History
ED Past Medical History: Psychiatric (Mood disorder, autism, intermittent violent behavior issues, Anxiety, ODD, ) and Other (Asperger's syndrome)
ED Past Surgical History: None
Social History
Tobacco: Non-smoker
Alcohol: None
Drug: None
Personal: Single
Living: with family
Employment: Not employed
Family History
Family History: Other (Noncontributory)
Review of Systems
Review of Systems
All Other Systems: Not applicable
Cardiac: Reports chest pain
Psychiatric: Reports anxiety
Phy Exam
Physical Exam
Physical Exam:
Physical Exam
General: Disheveled male walking around the room asking for sara brittany and a box lunch
Neck: No jaundice
Lungs: no acute respiratory distress.
Neuro: alert and oriented ambulates without difficulty
Skin: no rash
Psychiatric: Disheveled redirect
Extremities: no edema.
Course
Vital Signs
Initial and Last Documented VS:
Initial Vital Signs
Temp Pulse Resp BP Pulse Ox
98.1 F 124 20 138/82 98
10/01/24 23:32 10/01/24 23:32 10/01/24 23:32 10/01/24 23:32 10/01/24 23:32
Last Documented Vital Signs
Temp Pulse Resp BP Pulse Ox
98.1 F 124 20 138/82 98
10/01/24 23:32 10/01/24 23:32 10/01/24 23:32 10/01/24 23:32 10/01/24 23:32
MDM/Problems Addressed
Differential Diagnosis Includes:
Anxiety mental illness malingering
Chronic conditions affecting care: Psychiatric illness
Acute Exacerbation and/or Progression of Chronic Illness: Psychiatric illness
*Pulse Oximetry
SaO2: 98
Oxygen Mode of Delivery: Room air
Patient hypoxic: no
*Critical Care Note
Total Time (30-74mins, 75-104mins- exclusive of procedures): Not Applicable
Update Note
Update Note:
Update patient with multiple complaints no apparent medical issue given verbal instructions
ED Attending Note
-
Portions of this chart may have been created with voice recognition software.� Occasional wrong word or��sound alike� substitutions may have occurred due to the inherent limitations of voice recognition software.
Discharge Plan
Departure
Patient Disposition: Home (Routine Discharge)
Date of Disposition: 10/01/24
Time of Disposition: 04:45
Patient with high blood pressure during this ER visit?: No
Condition: Good
Discharge Problem:
Anxiety
Instructions: Anxiety, Adult (DC)
Prescriptions:
No Action
oxcarbazepine 300 MG tablet
300 mg PO BID
risperidone [Risperdal] 1 MG tablet
1 mg PO DAILY
clonidine HCl 0.1 mg Tablet
0.1 mg PO DAILYPRN PRN (Reason: increased agitation)
melatonin 5 mg Tablet
10 mg PO HS
clonidine HCl 0.3 mg Tablet
0.3 mg PO HS
risperidone 2 mg Tablet
4 mg PO HS
Discharge Date and Time
Print Language: SPANISH
--- NOTE | 2024-10-02 01:59 | ED.GENMED ---
History of Present Illness
General
Chief Complaint: Anxiety
Source: patient and records
Exam Limitations: none
Time Seen by Provider: 10/02/24 01:54
Nursing documentation reviewed up to this point in time: agreed with
History of Present Illness
History of Present Illness:
24-year-old male fifth visit today demanding that I listen to his back he will show me where demanding he is hooked up to an EKG, demanding to have something to eat
Past History
Past History
ED Past Medical History: Psychiatric (Mood disorder, autism, intermittent violent behavior issues, Anxiety, ODD, ) and Other (Asperger's syndrome)
ED Past Surgical History: None
Social History
Tobacco: Non-smoker
Alcohol: None
Drug: None
Personal: Single
Living: with family
Employment: Not employed
Family History
Family History: Other (Noncontributory)
Review of Systems
Review of Systems
All Other Systems: Not applicable
Psychiatric: Reports anxiety
Phy Exam
Physical Exam
Physical Exam:
Physical Exam
General: Disheveled male standing upright no acute distress
Neck: No jaundice
Heart: Regular
Lungs: no acute respiratory distress. No wheezes
Neuro: alert and oriented. no focal neurological deficits
Skin: no rash
Psychiatric: Odd affect
Extremities: no edema.
Course
Vital Signs
Initial and Last Documented VS:
Initial Vital Signs
Temp Pulse Resp BP Pulse Ox
98.1 F 124 20 138/82 98
10/01/24 23:32 10/01/24 23:32 10/01/24 23:32 10/01/24 23:32 10/01/24 23:32
Last Documented Vital Signs
Temp Pulse Resp BP Pulse Ox
98.1 F 124 20 138/82 98
10/01/24 23:32 10/01/24 23:32 10/01/24 23:32 10/01/24 23:32 10/01/24 23:47
MDM/Problems Addressed
Differential Diagnosis Includes:
Anxiety mental illness malingering
MDM/Problems Addressed:
Anxiety multiple complaint
Chronic conditions affecting care: Neurological disorder and Psychiatric illness
Acute Exacerbation and/or Progression of Chronic Illness: Neurological disorder and Psychiatric illness
*Pulse Oximetry
SaO2: 98
Oxygen Mode of Delivery: Room air
Patient hypoxic: no
*Critical Care Note
Total Time (30-74mins, 75-104mins- exclusive of procedures): Not Applicable
Update Note
Update Note:
Update, reviewed with nursing patient seen by crisis earlier today attempted to get a place to psychiatric facility were unsuccessful no apparent medical issues, patient stable for discharge
ED Attending Note
-
Portions of this chart may have been created with voice recognition software.� Occasional wrong word or��sound alike� substitutions may have occurred due to the inherent limitations of voice recognition software.
Discharge Plan
Departure
Patient Disposition: Home (Routine Discharge)
Date of Disposition: 10/02/24
Time of Disposition: 02:01
Patient with high blood pressure during this ER visit?: No
Condition: Good
Discharge Problem:
Anxiety
Instructions: Anxiety, Adult (DC)
Prescriptions:
No Action
oxcarbazepine 300 MG tablet
300 mg PO BID
risperidone [Risperdal] 1 MG tablet
1 mg PO DAILY
clonidine HCl 0.1 mg Tablet
0.1 mg PO DAILYPRN PRN (Reason: increased agitation)
melatonin 5 mg Tablet
10 mg PO HS
clonidine HCl 0.3 mg Tablet
0.3 mg PO HS
risperidone 2 mg Tablet
4 mg PO HS
Interventions
Interventions:
*General Assessment Last Done: 10/01/24 23:53
*ED- Fall Risk Assessment Last Done: 10/01/24 23:53
Discharge Date and Time
Print Language: OCCITAN
== END 2024-10-02 02:30 | disposition home or self-care (01) ==
LOC: EMR 23:31
PROVIDERS: EMERGENCY PHYSICIAN Emergency Medicine
DX: F41.9 Anxiety disorder, unspecified (principal); F84.5 Asperger's syndrome
CPT/HCPCS: 99282

== ENCOUNTER 2024-10-09 18:07 | Inpatient (IN) | payer OTHER, SELFPAY ==
[2024-10-09] VITALS (12 sets, daily range): BP systolic 98–147; BP diastolic 75–98; BMI 32.3; BMI 32.1
[2024-10-09 13:17] LABS: Hematocrit 42.5 % (39.0-52.0); Hemoglobin 14.0 g/dL (13.0-18.0); Mean Corp Hgb Conc. 32.9 g/dL (33.0-37.0); Mean Corpuscular Volume 88.2 fL (80.0-94.0); Nucleated Red Blood Cells % 0 % (-); Platelet Count 325 10^3/uL (130-400); Red Cell Dist. Width 13.0 % (11.5-14.5)
[2024-10-09 13:39] LABS: ALT (SGPT) 74 U/L (0-50); AST (SGOT) 73 U/L (17-59); Acetaminophen < 10 ug/ml (10-30); Albumin 5.1 g/dl (3.5-5.0); Alkaline Phosphatase 65 U/L (38-126); Blood Urea Nitrogen 24 mg/dl (9-20); Calcium 10.3 mg/dl (8.4-10.2); Carbon Dioxide 20 mmol/L (22-30); Chloride 110 mmol/L (98-107); Estimated Creatinine Clearance > 125 ml/min; Glucose 103 mg/dl (70-99); Potassium 4.1 mmol/L (3.5-5.1); Salicylate < 1.0 mg/dl (2.0-20.0); Sodium 148 mmol/L (135-145); Total Protein 8.1 g/dl (6.3-8.2); eGFR > 60.00
--- NOTE | 2024-10-09 14:10 | ED.GENMED ---
History of Present Illness
General
Chief Complaint: Change in Mental Status
Time Seen by Provider: 10/09/24 13:05
History of Present Illness
History of Present Illness:
24-year-old male with a past medical history of autism, OCD, anxiety who presents to the emergency department from [facility] for evaluation of suspected pinky. Patient cannot meaningfully participate in history�he is
whispering quietly to himself constantly and does not acknowledge my presence aside from making eye contact and continuing to whisper to himself. [facility] with whom I spoke directly patient has been incarcerated since
10/04. He apparently was not cooperative with intake�he refused to go through medical intake and as such has not received any of his medications while incarcerated. Over the past few days having increasing agitation, flight of ideas, pressured
speech and sent to the ER.
Past History
Past History
ED Past Medical History: Psychiatric (Mood disorder, autism, intermittent violent behavior issues, Anxiety, ODD, ) and Other (Asperger's syndrome)
ED Past Surgical History: None
Social History
Tobacco: Non-smoker
Alcohol: None
Drug: None
Personal: Single
Living: with family
Employment: Not employed
Family History
Family History: Other (Noncontributory)
Review of Systems
Review of Systems
Unable to obtain full review of systems at this time due to: other (Patient not participating due to acute psychiatric issue)
All Other Systems: Not applicable
Phy Exam
Physical Exam
Physical Exam:
General: Awake, alert, eyes open and he does make eye contact; constant whispering to himself but will not answer questions
Head: Normocephalic, atraumatic
Eyes: Conjunctiva normal, EOMI, pupils are equal round and reactive to light bilaterally
Throat: Airway intact, handling secretions
Neck: Trachea midline
Lungs: Breathing comfortably not in any respiratory distress
Heart: Tachycardic
Abd: Soft, non distended, nontender
Neuro: Cranial nerves are grossly intact, he is moving all extremities spontaneously without gross deficit
Extremities: Warm and well-perfused
Psych: Bizarre affect with pressured speech, appears to be responding to internal stimuli
Scores
Heart Failure Risk
Heart Failure Risk Score: Not Applicable
Heart Score for Chest Pain Patients
STEMI patient?: Not applicable
Withdrawal Assessment of Alcohol
Withdrawal Assessment Completed?: Not applicable
Course
Orders/Labs/Results
Orders:
Orders
10/09/24 13:09
Acetaminophen Urgent
Alcohol Urgent
CMP [Comprehensive Metabolic Panel] Urgent
Complete Blood Count/With Diff Urgent
Salicylate Urgent
10/09/24 13:10
CT Head W/o Iv Contrast Urgent
Comment:
Reason For Exam: confusion
Crisis Consult Routine
Reason for Consult: pinky
10/09/24 13:24
Drug Screen, Urine [Urine Drug Abuse Screen] Urgent
Date Specimen was Collected: 10/09/24
Time Specimen was Collected: 13:13
10/09/24 13:25
Straight Cath As Directed
Frequency: One time now
10/09/24 13:50
PSYCHIATRY CONSULT Urgent
Consulting Provider: Manfred Aguirre
Was physician already notified: Yes
10/09/24 14:07
Haloperidol Lactate [Haldol] 1 mg IV NOW STA
Midazolam HCl [Versed] 1 mg IV NOW STA
10/09/24 14:08
Electrocardiogram (*1) Urgent
Reason for Study: QTc Monitoring
EKG- Treatment ONCE
10/09/24 14:25
Magnesium Sulfate 2 Gram/50 ml [Magnesium Sulfate] 2 gram in 50 ml IV NOW
10/09/24 14:27
0.9% Sodium Chloride 1000 ml [Nss] 1,000 ml IV BOLUS
10/09/24 15:50
CPK [Creatine Phosphokinase] Urgent
Tegretol (Carbamazepine) Urgent
10/09/24 16:01
Clonidine [Catapres] 0.1 mg PO NOW STA
Midazolam HCl [Versed] 1 mg IV NOW STA
10/09/24 16:18
Midazolam HCl [Versed] 1 mg IV NOW STA
10/09/24 16:32
Midazolam HCl [Versed] 2 mg IV NOW STA
10/09/24 16:33
Midazolam HCl [Versed] 2 mg .ROUTE .STK-MED ONE
Abnormal Lab Results
10/09/24 10/09/24
13:09 15:50
WBC 11.0 H 10^3/uL
(4.8-10.8)
MCHC 32.9 L g/dL
(33.0-37.0)
MPV 10.6 H fL
(7.4-10.4)
Absolute Neuts (auto) 8.1 H 10^3/uL
(1.4-6.5)
Absolute Monos (auto) 0.9 H 10^3/uL
(0.1-0.6)
Lymphocytes % 17.0 L %
(20.5-51.1)
Sodium 148 H mmol/L
(135-145)
Chloride 110 H mmol/L
(98-107)
Carbon Dioxide 20 L mmol/L
(22-30)
BUN 24 H mg/dl
(9-20)
Glucose 103 H mg/dl
(70-99)
Calcium 10.3 H mg/dl
(8.4-10.2)
AST 73 H U/L
(17-59)
ALT 74 H U/L
(0-50)
Creatine Kinase 742 H U/L
(55-170)
Albumin 5.1 H g/dl
(3.5-5.0)
Salicylates < 1.0 L mg/dl
(2.0-20.0)
Acetaminophen < 10 L ug/ml
(10-30)
Carbamazepine < 3.0 L ug/ml
(4-12)
10/09/24 13:09
10/09/24 13:09
Vital Signs
Initial and Last Documented VS:
Initial Vital Signs
Pulse Resp BP Pulse Ox
110 18 131/98 98
10/09/24 12:59 10/09/24 12:59 10/09/24 12:59 10/09/24 12:59
Last Documented Vital Signs
Pulse Resp BP Pulse Ox
134 18 133/84 99
10/09/24 16:12 10/09/24 12:59 10/09/24 16:12 10/09/24 15:00
MDM/Problems Addressed
Differential Diagnosis Includes:
Pinky, psychosis, behavioral issue, electrolyte imbalance, drug/alcohol use, withdrawal, brain bleed, infection
MDM/Problems Addressed:
24-year-old male presents from [facility] for pressured speech and bizarre behavior worsening over the past few days in the setting of not receiving his normal psychiatric medications due to patient's refusal of medical
intake at detention. He is tachycardic otherwise normal vitals. Physical exam as above. He appears to be acutely psychotic versus severely manic. Will plan to send basic medical screening tests. Haldol and Ativan for now. Discussed with crisis
for assessment as well as with psychiatry for consultation.
Labs reviewed: CBC shows marginal leukocytosis, CMP shows elevated BUN and mild hypernatremia. Marginal transaminitis unclear acute clinical significance. Tylenol and salicylate levels are negative. UDS negative. Alcohol level negative.
Notably: EKG after Haldol and Ativan did show prolonged QT interval. Hold on further QT prolonging agents. Provide IV magnesium. IV fluids. Continue to monitor.
Psychiatry evaluated the bedside, recommended dosing with additional benzodiazepine and dose of clonidine. Unlikely to be solely an acute psychiatric issue, recommended admission for continued monitoring and treatment as he cannot go back to detention
in current condition and cannot be placed inpatient psychiatric currently. Psychiatry questions whether there could be some withdrawal syndrome at play although currently normotensive, heart rate in the 80s. Awaiting CT head and then will plan for
hospitalist admission for acute encephalopathy.
Patient acutely agitated prior to CT requiring multiple rounds of benzodiazepine for sedation as well as ketamine. I did discuss with hospitalist to facilitate admission pending imaging.
*Pulse Oximetry
SaO2: 98
Oxygen Mode of Delivery: Room air
Patient hypoxic: no (98%)
*Critical Care Note
Total Time (30-74mins, 75-104mins- exclusive of procedures): Not Applicable
Data Reviewed
Source: patient and police
Patient Management
Discussion with other providers: Hospitalist (Discussed with hospitalist), Gut Dropper (Discussed with psychiatry), Shelter staff (Discussed directly with detention staff) and Other (Discussed with crisis)
Escalation/DeEscalation of care consider admission/obs:
Admission indicated
ED Attending Note
-
Portions of this chart may have been created with voice recognition software.� Occasional wrong word or��sound alike� substitutions may have occurred due to the inherent limitations of voice recognition software.
Discharge Plan
Departure
Discharge Problem:
Encephalopathy, Rhabdomyolysis
Prescriptions:
No Action
oxcarbazepine 300 MG tablet
300 mg PO BID
risperidone [Risperdal] 1 MG tablet
1 mg PO DAILY
clonidine HCl 0.1 mg Tablet
0.1 mg PO DAILYPRN PRN (Reason: increased agitation)
melatonin 5 mg Tablet
10 mg PO HS
clonidine HCl 0.3 mg Tablet
0.3 mg PO HS
risperidone 2 mg Tablet
4 mg PO HS
Referrals:
[facility] [Family Provider, General]
Interventions
Interventions:
*General Assessment Last Done: 10/09/24 12:59
*Neglect/Abuse Screening Last Done: 10/09/24 12:59
*ED- Fall Risk Assessment Last Done: 10/09/24 12:59
*ED COVID-19 Vaccine History Last Done: 10/09/24 12:59
ED- Neurological Assessment Last Done: 10/09/24 12:59
Discharge Date and Time
Print Language: MONGOLIAN
[2024-10-09] MEDS: VERSED 1 MG IV ×2 (14:12→16:14)
[2024-10-09] MEDS: HALDOL 1 MG IV (14:17)
[2024-10-09] MEDS: NSS 1000 IV (14:31)
[2024-10-09] MEDS: MAGNESIUM SULFATE 50 IV (14:31)
[2024-10-09] MEDS: CATAPRES 0.1 MG PO (16:12)
--- NOTE | 2024-10-09 16:46 | HPS.HSE ---
Family Physician
-
Family Physician: Facility [facility]
Chief Complaint
-
Confusion, karly, agitation
History of Present Illness
24-year-old male from [facility] for suspected karly. He was reportedly whispering to himself in front of ER physician did not acknowledge ER physician's presence. According to [facility] staff he has been
incarcerated since 10/04/2024 a total of 5 days. He refused medical intake and has not received any of his medications .according to 2 correctional officers at bedside during patient's rant he did state he was going to kill them, however they state
he is not in his right mind. He has active scabies admits throughout his hair, walters and chest hair. He has scabbed scratched areas to his chest due to scabies infestation. He is currently sedated with IV Versed unable to give review of systems.
He has history of autism, mood disorder, anxiety, intermittent violent behavior/ODD
Medical History
Past Medical History
Past Medical History: Reports Other
Additional Past Medical History:
autism
mood disorder
anxiety
intermittent violent behavior/ODD
Class I obesity
Past Surgical History: Reports Other
Additional Past Surgical History:
Dental surgery
Social History
Tobacco: Non-smoker
Alcohol: None
Drug: None
Personal: Single
Living: [facility] (Currently [facility] x 5 days)
Employment: Disabled
Family History
Family History: Not pertinent
Allergies / Home Medications
Allergies reflects when Allergies were last updated in [employer].
Home Medications with original date entered in [employer]
Allergy/Medication List:
Allergies
Allergy/AdvReac Type Severity Reaction Status Date / Time
egg Allergy Nausea / Verified 10/01/24 23:35
Vomiting
zolpidem (From Ambien) Allergy sleep Verified 10/01/24 23:35
walking
Home Medications
oxcarbazepine 300 mg tablet 300 mg PO BID 05/27/20
risperidone 1 mg tablet (Risperdal) 1 mg PO DAILY 09/21/20
clonidine HCl 0.1 mg tablet 0.1 mg PO DAILYPRN PRN increased agitation 06/11/22
melatonin 5 mg tablet 10 mg PO HS 06/11/22
clonidine HCl 0.3 mg tablet 0.3 mg PO HS 07/17/22
risperidone 2 mg tablet 4 mg PO HS 07/17/22
Remeron 15 mg PO HS 10/09/24
Review of Systems
-
History Source: Other (2 correctional officers at bedside, and nurse)
A 12 point ROS was completed and negative except as noted: Yes
Constitutional: Denies Fever or Chills
EENT: Denies Sore Throat or Runny Nose
Respiratory: Denies Cough or Trouble Breathing
Cardiac: Denies Diaphoresis
Abdomen/GI: Denies Vomiting or Diarrhea
Musculoskeletal: Denies Joint Swelling or Edema
Skin: Reports Itching and Rash (Scabies and infestation to hair, chest hair)
Neurological: Denies Weakness
Hematologic/Lymphatic: Reports No Symptoms
Psych: Reports Calm (After sedation)
Physical Exam
Vital Signs
Vital Signs
Pulse Resp BP Pulse Ox
134 18 133/84 99
10/09/24 16:12 10/09/24 12:59 10/09/24 16:12 10/09/24 15:00
Physical Exam
General: Other (Sedated post Versed due to agitation); No Fever
HEENT: NormoCephalic, Anicteric, Atraumatic, No Ptosis and Other (Scabies and infestation to hair, chest hair)
Respiratory: Clear; No Wheezes, Rales or Rhonchi
Cardiac: S1/S2 and JVD; No Murmur, Rub, Gallop or Peripheral Edema
GI: Soft, Non Tender, Non Distended and Normal Bowel Sounds
Rectal: Deferred by Provider
Genito-urinary: Deferred by me
Musculoskeletal: No Clubbing, No Cyanosis and No Edema
Skin: Warm, Dry and Rash (Scabies and infestation to hair, chest hair scabbed areas to chest from active scabies infection)
Neuro: Sedated (With Versed due to agitation, left arm, right leg handcuffed to bed)
Psych: Calm
Laboratory Results
-
10/09/24 13:09
10/09/24 13:09
Laboratory Results
Total Bilirubin 1.2 mg/dl (0.2-1.3) 10/09/24 13:09
AST 73 U/L (17-59) H 10/09/24 13:09
ALT 74 U/L (0-50) H 10/09/24 13:09
Alkaline Phosphatase 65 U/L (38-126) 10/09/24 13:09
Data Reviewed
-
Lab Data: Labs Reviewed by me
Impression/Plan
-
Impression/plan:
Admit to telemetry
#Acute encephalopathy with agitation unclear etiology
UDS negative, acetaminophen/salicylate negative alcohol nondetected
Patient required 4 mg Versed for sedation due to extreme agitation and thrashing on CT table
-Will start Klonopin twice daily as needed agitation
-Clonidine 0.1 mg a.m. as needed agitation, scheduled 0.2 mg at bedtime
-Resume risperidone
- Case discussed with psychiatry at bedside
- Check syphilis
- CT head pending
#History of oppositional defiance disorder/Autism/Anxiety
#Scabies infestation to scalp and chest
-Apply permethrin lotion
- Precautions due to active scabies infestation
#Mild rhabdomyolysis
Creatinine kinase 742 will trend
- IV 0.45 Nss
#Mild transaminitis likely in setting of rhabdo
AST 73, ALT 74 will monitor
#Prolonged QTc
-Hold prolonging QTc agents
Hold Risperdal 4 mg at bedtime patient has not been taking for the past 5 days
Hold Remeron
EKG sinus tach 110 bpm, QTc 565 MS
#Mild hypernatremia
NA 148
- IV 0.45 Nss
Follow BMP
#Class I obesity�BMI 32.3
Affects aspects of care
Patiently current sedated and encephalopathic unable to discuss diet
Insomnia
May continue melatonin but hold Remeron due to prolonged QTc
DVT prophylaxis
Subcu heparin
Full code
--- NOTE | 2024-10-09 16:46 | CS.PSYCHR ---
Addendum entered and electronically signed by Manfred Aguirre MD 10/09/24 17:32:
[facility] records indcate Risperdal 5 mg daily, clonidine 0.3 hs as well as 0.1 mg prn
Last seen 09/28/24
Original Note:
Consult Summary - Psychiatry
-
Asked to see patient for altered mental status. seen by me today. Had been brought from [facility], where he has been since 10/04/24. Has become nearly incoherent, unable to be understood, unclear reason. Has been refusing usual psychiatric
medications (clonidine and trileptal) which he is give for autism and borderline personality disorder. Well known to Crisis staff here, followed at [facility] where his meds are prescribed. Also has history of risperidone 5 mg daily
for uncearl indication. remote history of other psychiatric disgnoses and problematic behaviors, but most recently considered to have autism spectrum disorder as primary diagnosis.
Mother had reportedly tried to have patient involuntarily hospitalzed last week but 302 petition turnded down.
On my interview patient found lying handcuffed to stretcher, talking softly non-stop. Unable to interrupt, unable to understand what he was saying due to soft tone and garbled language. Good eye contact, but unable to interact in any other way. I
returned 20 minutes latere and was able to get him to say his name and age (both answered accurately) but then went back to barely audible monolgue which could not be deciphered.
Has very prolonged QTc, labs otherwise fairly benign. VS shows mild tachycardia, normotensive, resp ok, afebril.
Other labs found to have elevated CK, mildly elevated transaminases, mildly elevated sodium and chloride, urine with some cells and bacteria
On exam patient found to have lice infestation, acne on chest
Mental status as described above, unable to obtain more than name and date of
current diagnosis consistent with encephalopathy, does not look like karly or other psychosis
Would restart trileptal, hold risperdal, give clonidine o.1 mg am, 0.2 hs, prn ativan 1 mg/valium 2 mg
Repeat u/a
will see in am
[2024-10-09] MEDS: VERSED 2 MG IV (16:47)
--- NOTE | 2024-10-09 17:11 | W.PN.UPDATE ---
Update Note
Progress Note Update
Attending�addendum:
I�saw�and�evaluated�the�patient.�Sheri Hylton INDRA �note�and�agree�with�findings�and�plan�as�documented.��
�patient seen and examined at bedside, patient is very somnolent and cannot provide interval history.
Physical�exam:
GENERAL : Sleepy
HEENT: Nonicteric sclerae, PERRLA, EOMI. Oropharynx clear. Moist mucous membranes. Conjunctivae appear well perfused.
HEART: Regular rate and rhythm without murmurs.
LUNGS: Bilateral basal y.
ABDOMEN: Soft, positive bowel sounds, nontender, no organomegaly.
RECTAL: Deferred.
SKIN: Multiple skin lesion to chest area
NEUROLOGIC: Sleepy
�
Assessment/plan:
Acute metabolic encephalopathy.
Multifactorial.
Rule out withdrawal
Appreciate psych input, patient was seen in the ER.
Follow psych recommendations.
Benzodiazepine as needed.
Urinalysis pending.
CT head pending
Mild rhabdomyolysis.
Continue IV fluid
Leukocytosis
Possibly reactive
Scabies
Apply local Permethrin.
Prolonged QT
Follow EKGs, avoid QT prolongation meds
CODE STATUS: Full code
DVT prophylaxis: Heparin
Diet: Regular diet
�
Total�time�spent�on�today�s�encounter�was�75�minutes�which�included�time�spent�in�counseling�the�patient/family�regarding�diagnosis�and�treatment�plan�as�listed�above,�goals�of�care,�and�symptom�management.�Case�was�discussed�with�nursing�staff,�spec
ialists,�and�care�coordinators/case�management.�All�labs�and�imaging�personally�reviewed�by�me.�Remainder�the�time�spent�in�detailed�review�of�previous�records,�lab�data,�imaging,�and�other�medical�provider�documentation.
[2024-10-09] MEDS: KETAMINE 55 MG IV (17:39)
--- NOTE | 2024-10-09 17:47 | PHANOTE ---
MED REC NOTE- PATIENT COMING FROM [facility] BUT DID NOT HAVE INTAKE AT [facility] SO NO MEDICATION WERE GIVEN OR STARTED AT [facility]. PATIENT HAS PHARMACY RECORDS FILED THIS MONTH BUT NO ECW RECORD.
--- NOTE | 2024-10-09 18:58 | PTCARENOTE ---
10/09- Patient reportedly came in with change of mental status, agitation and voicing 'I will kill you' to officers in Emergency department. PMH includes current lice, scabies, Borderline Personality Disorder, ASD and Aggression. Patient had been
noncompliant with medications. Notified Leveler Helper and Physician of potential for need for increased level of care due to homicidal ideation and acute mental instability. Physician advised we have PRN Valium for agitation.
[2024-10-09] MEDS: 0.45%NACL 1000 IV (22:01)
[2024-10-09] MEDS: HEPARIN 5000 UNITS SC (22:01)
[2024-10-09] MEDS: ELIMITE/ACTICIN/PERMETHRIN 5% 1 APPLIC TOPICAL (22:02)
[2024-10-09] MEDS: KLONOPIN 0.5 MG PO (22:12)
[2024-10-09] MEDS: MELATONIN 10 MG PO (22:12)
[2024-10-09] MEDS: TRILEPTAL 300 MG PO (22:13)
[2024-10-09] MEDS: CATAPRES 0.2 MG PO (22:13)
--- NOTE | 2024-10-10 03:09 | PTCARENOTE ---
Patient arrived to unit via stretcher and handcuffed to bed with two guards. Patient yelling and speaking incomprehensible words. When asked patient admission questions patient would repeat incomprehensible words. Patient did pass RN swallow screen
and cooperated with most questions and directions during swallow eval. Patient admitted with scabie bites all over body. Guards in room at all times.
[2024-10-10 03:11] VITALS: BP 125/78
[2024-10-10 07:58] VITALS: BP 132/79
[2024-10-10 08:28] LABS: Hematocrit 35.5 % (39.0-52.0); Hemoglobin 11.8 g/dL (13.0-18.0); Mean Corp Hgb Conc. 33.2 g/dL (33.0-37.0); Mean Corpuscular Volume 88.1 fL (80.0-94.0); Nucleated Red Blood Cells % 0 % (-); Platelet Count 272 10^3/uL (130-400); Red Cell Dist. Width 12.8 % (11.5-14.5)
[2024-10-10 09:05] LABS: ALT (SGPT) 60 U/L (0-50); AST (SGOT) 56 U/L (17-59); Albumin 4.0 g/dl (3.5-5.0); Alkaline Phosphatase 57 U/L (38-126); Blood Urea Nitrogen 14 mg/dl (9-20); Calcium 9.0 mg/dl (8.4-10.2); Carbon Dioxide 18 mmol/L (22-30); Chloride 114 mmol/L (98-107); Estimated Creatinine Clearance > 125 ml/min; Glucose 67 mg/dl (70-99); Potassium 3.7 mmol/L (3.5-5.1); Sodium 147 mmol/L (135-145); Total Protein 6.4 g/dl (6.3-8.2); eGFR > 60.00
[2024-10-10] MEDS: 0.45%NACL 1000 IV ×2 (09:29→21:07)
[2024-10-10] MEDS: HEPARIN 5000 UNITS SC ×2 (09:31→19:52)
[2024-10-10] MEDS: TRILEPTAL 300 MG PO ×2 (09:36→19:53)
[2024-10-10] MEDS: KLONOPIN 0.5 MG PO ×2 (10:03→23:01)
[2024-10-10 11:00] VITALS: BP 157/84
--- NOTE | 2024-10-10 12:12 | W.PN.HOSP.TC ---
Today's Communication/Plan
-
Altered mental status.
Assessment / Plan
Assessment / Plan
Impression:
24-year-old male from [facility] for suspected karly. He was reportedly whispering to himself in front of ER physician did not acknowledge ER physician's presence. According to [facility] staff he has been
incarcerated since 10/04/2024 a total of 5 days. He refused medical intake and has not received any of his medications .according to 2 correctional officers at bedside during patient's rant he did state he was going to kill them, however they state
he is not in his right mind. He has active scabies admits throughout his hair, walters and chest hair. He has scabbed scratched areas to his chest due to scabies infestation. He is currently sedated with IV Versed unable to give review of systems.
He has history of autism, mood disorder, anxiety, intermittent violent behavior/ODD.
Assessment/plan:
#Acute encephalopathy with agitation unclear etiology
UDS negative, acetaminophen/salicylate negative alcohol nondetected
Patient required 4 mg Versed for sedation due to extreme agitation and thrashing on CT table
-started on Klonopin twice daily as needed agitation
-Clonidine 0.1 mg a.m. as needed agitation, scheduled 0.2 mg at bedtime
-hold risperidone
- Psych consulted
patient with History of oppositional defiance disorder/Autism/Anxiety
#Scabies infestation to scalp and chest
-Apply permethrin lotion
- Precautions due to active scabies infestation
#Mild rhabdomyolysis
Creatinine kinase 742 will trend
- IV 0.45 Nss
#Mild transaminitis likely in setting of rhabdo
AST 73, ALT 74 will monitor
#Prolonged QTc
-Hold prolonging QTc agents
Hold Risperdal 4 mg at bedtime patient has not been taking for the past 5 days
Hold Remeron
EKG sinus tach 110 bpm, QTc 565 MS
#Mild hypernatremia
NA 148
- IV 0.45 Nss
Follow BMP
#Class I obesity�BMI 32.3
Affects aspects of care
Patiently current sedated and encephalopathic unable to discuss diet
Insomnia
May continue melatonin but hold Remeron due to prolonged QTc
CODE STATUS: Full code
DVT prophylaxis:Heparin
Diet: Regular diet
Disposition: Monitor mental status
Total time spent on today's encounter was 65 minutes which included time spent in counseling the patient/family regarding diagnosis and treatment plan as listed above, goals of care, and symptom management. Case was discussed with nursing staff,
specialists, and care coordinators/case management. All labs and imaging personally reviewed by me. Remainder the time spent in detailed review of previous records, lab data, imaging, and other medical provider documentation.
Anticipated Discharge: 24 - 48 hours
Subjective/Interval History
-
Date of Service: October 10, 2024
Patient still confused
Objective Data
-
Labs:
Laboratory Results
10/10/24
08:13
WBC 8.7
Hgb 11.8 L
Hct 35.5 L
Plt Count 272
Sodium 147 H
Potassium 3.7
Chloride 114 H
Carbon Dioxide 18 L
BUN 14
Creatinine 0.7
Glucose 67 L
Calcium 9.0
Total Bilirubin 1.0
AST 56
ALT 60 H
Alkaline Phosphatase 57
Vital Signs:
Vital Signs
Temp Pulse Resp BP Pulse Ox
98.6 F 112 24 157/84 98
10/10/24 11:00 10/10/24 11:00 10/10/24 11:00 10/10/24 11:00 10/10/24 11:00
I&O
10/09/24 10/10/24 10/11/24
06:59 06:59 06:59
Intake Total 1040 / 1040
Output Total 375 / 375
Balance 665 / 665
Physical Exam
-
General: Appears in Distress and Obese
HEENT: Normocephalic, [place] Conjunctivae and Nose Appears Normal
Respiratory: Rales and Non Labored Respirations
Cardiac: Regular Rhythm and S1/S2
Breast: Deferred by me
GI: Soft, Nontender, Nondistended and Normal Bowel Sounds
Genito-urinary: No Costovertebral Tender
Musculoskeletal: No Clubbing, No Cyanosis and No Edema
Skin: Lesions
Neuro: Awake, Alert, Oriented, AO x 3 and No Motor Deficits
Psych: Confused and Agitated
Data Reviewed
-
Diagnostic Radiology: Image personally visualized and interpreted and Report Reviewed by me
CT Scan: Image personally visualized and interpreted and Report Reviewed by me
Ultrasound: Image personally visualized and interpreted and Report Reviewed by me
MRI: Image personally visualized and interpreted and Report Reviewed by me
Medical Tests (Nuc Med, Echo etc): Image personally visualized and interpreted and Report Reviewed by me
Labs: Labs Reviewed by me
Old Records: Reviewed
[2024-10-10 13:35] LABS: Syphilis/T. pallidum Ab Reflex Negative (Negative)
[2024-10-10] MEDS: CILOXAN 0.3% OPHTHALMIC SOLUTION 1 DROP OPHTH ×2 (14:13→16:53)
--- NOTE | 2024-10-10 15:01 | CM ---
CM reviewed chart, patient seen with guards. Patient has been at [facility] since 10/04. Psych following- per chart, patients mother recently (last week) tried to have patient involuntarily hospitalized, 302 denied. Call to [facility] [phone] to determine
if patient will return to [facility] upon discharge once medically stable, per [facility], patients charges minor, unsure if patient will be returning at this time/unable to give CM answer.
Plan; TBD, potential return to [facility] Report: [phone]
[facility] Fax: [phone]
[2024-10-10 15:55] VITALS: BP 132/75
[2024-10-10 19:31] VITALS: BP 126/75
[2024-10-10] MEDS: CILOXAN 0.3% OPHTHALMIC SOLUTION 2 DROP OPHTH ×2 (19:52→23:01)
[2024-10-10] MEDS: MELATONIN 10 MG PO (21:08)
[2024-10-10] MEDS: CATAPRES 0.2 MG PO (21:08)
[2024-10-10] MEDS: ZYPREXA ZYDIS (ORALLY DISINTEGRATING) 5 MG PO (21:08)
[2024-10-10] MEDS: TYLENOL 650 MG PO (22:59)
[2024-10-10 23:00] VITALS: BP 104/63
--- NOTE | 2024-10-11 02:43 | DOWNTIME ---
There was a [employer] Downtime on 10/11/2024 from 0100 to 10/11/2024 at 0235. Downtime documentation of patient's care, including medication administrations, has been reconciled in the electronic record per guidelines. Refer to the
patient's paper chart under the miscellaneous tab to see printed paper medication records and downtime forms.
[2024-10-11 03:00] VITALS: BP 130/78
[2024-10-11] MEDS: CILOXAN 0.3% OPHTHALMIC SOLUTION 2 DROP OPHTH ×3 (03:39→23:22)
[2024-10-11] MEDS: 0.45%NACL 1000 IV ×2 (06:41→16:28)
[2024-10-11 07:00] VITALS: BP 146/96
[2024-10-11 08:13] LABS: Hematocrit 37.4 % (39.0-52.0); Hemoglobin 12.7 g/dL (13.0-18.0); Mean Corp Hgb Conc. 34.0 g/dL (33.0-37.0); Mean Corpuscular Volume 85.8 fL (80.0-94.0); Nucleated Red Blood Cells % 0 % (-); Platelet Count 282 10^3/uL (130-400); Red Cell Dist. Width 12.5 % (11.5-14.5)
[2024-10-11] MEDS: HEPARIN 5000 UNITS SC ×2 (08:24→21:03)
[2024-10-11] MEDS: CILOXAN 0.3% OPHTHALMIC SOLUTION 1 DROP OPHTH ×3 (08:25→16:27)
[2024-10-11] MEDS: TRILEPTAL 300 MG PO ×2 (08:25→21:03)
[2024-10-11 08:52] LABS: ALT (SGPT) 55 U/L (0-50); AST (SGOT) 46 U/L (17-59); Albumin 3.8 g/dl (3.5-5.0); Alkaline Phosphatase 56 U/L (38-126); Blood Urea Nitrogen 7 mg/dl (9-20); Calcium 8.7 mg/dl (8.4-10.2); Carbon Dioxide 19 mmol/L (22-30); Chloride 108 mmol/L (98-107); Estimated Creatinine Clearance > 125 ml/min; Glucose 66 mg/dl (70-99); Potassium 4.0 mmol/L (3.5-5.1); Sodium 137 mmol/L (135-145); Total Protein 6.3 g/dl (6.3-8.2); eGFR > 60.00
--- NOTE | 2024-10-11 10:22 | PN.CDI ---
CDI
- -
CDI:
Physician Documentation Request
Admit Date: 10/09/24 18:07
Dear Doctor Charley,
Patient admitted for altered mental status.
10/09 PCN: 'came in with change of mental status, agitation and voicing 'I will kill you' to officers in Emergency department. '
10/10 Hospitalist PN: 'according to 2 correctional officers at bedside during patient's rant he did state he was going to kill them, however they state he is not in his right mind.'
Please indicate in your progress notes if you are in agreement that the above diagnosis is valid for this patient:
____ - Homicidal ideation is a valid diagnosis (Please include it in your progress notes)
____ - Homicidal ideation is not a valid diagnosis for this patient
____ - Homicidal ideation is not yet confirmed but remains a suspected condition
____ - Other
____ - Unable to determine
Use of terms such as suspected, likely, concern for, or probable are acceptable for a diagnosis that is being evaluated, monitored or treated as if it exists and can be coded in the inpatient setting, when documented at the time of discharge.
Thank you,
Mirna Ashley RN, BSN
CDI Specialist
Available via [place] text
Please use your independent medical judgment in providing your response.
[2024-10-11 11:00] VITALS: BP 152/102
--- NOTE | 2024-10-11 11:24 | CM ---
Addendum entered by Shakira Fraga 10/11/24 13:38:
Patient to return to [facility] when stable, possibly tomorrow per physician.
Original Note:
Chart reviewed including updated psychiatry note, case worker spoke with guards at bedside, plan is for patient to return to [facility] when stable.
[facility]
[phone]
--- NOTE | 2024-10-11 11:52 | W.PN.UPDATE ---
Update Note
Progress Note Update
Pt seen by me at 1030 today for assessment. No longer in handcuffs, though has ankle shackle to bed. Talking nearly continuously but able to be interrupted to discuss current situation. Apologizes for not talking sense yesterday; when I told him he
said he was the [place] he said we wan not sabianism. Aware he is in custody, would be willing to sign 201 for inpatient psychiatric care. No complaints otherwise, ate all of his breakfast descpite being in awkward posture (declines efforts to
get hi to sit up straight.) No ill effects of zyprexa, on the contrary appears to have benefitted. Will increase to 5 mg bid.
I suggested to rn field case manager that he would be appropriate for inpatient care if he is able to be released from custody (either bail or dropped charges.)
--- NOTE | 2024-10-11 12:00 | W.PN.UPDATE ---
Update Note
Progress Note Update
Pt seen by me today, discussed with nursing as well as correctional officers at bedside. Talking to self a lot, but now more understandable. Tells me he is the [place], but also able to tell me his name, date of , and therapist's name.
Remains in handcuffs.
EKG performed, QTC only slightly prolonged on [place] correction (458) but [place] correction yields 418 (better correlated with risk of torsades according to most investigators.)
Given degree of psychosis, will plan on starting antipsychotic in effort to get pt better able to be understood as well as released from some restraint.
Will start zyprexa 5 mg bid (less likely to prolong QT than risperdal)
[2024-10-11] MEDS: 0.45%NACL IV ×2 (12:02)
[2024-10-11] MEDS: ZYPREXA ZYDIS (ORALLY DISINTEGRATING) 5 MG PO ×2 (12:27→21:03)
--- NOTE | 2024-10-11 13:29 | W.PN.HOSP.TC ---
Today's Communication/Plan
-
Discharge tomorrow
Assessment / Plan
Assessment / Plan
Impression:
24-year-old male from [facility] for suspected karly. He was reportedly whispering to himself in front of ER physician did not acknowledge ER physician's presence. According to [facility] staff he has been
incarcerated since 10/04/2024 a total of 5 days. He refused medical intake and has not received any of his medications .according to 2 correctional officers at bedside during patient's rant he did state he was going to kill them, however they state
he is not in his right mind. He has active scabies admits throughout his hair, walters and chest hair. He has scabbed scratched areas to his chest due to scabies infestation. He is currently sedated with IV Versed unable to give review of systems.
He has history of autism, mood disorder, anxiety, intermittent violent behavior/ODD.
Assessment/plan:
#Acute encephalopathy with agitation unclear etiology
UDS negative, acetaminophen/salicylate negative alcohol nondetected
Patient required 4 mg Versed for sedation due to extreme agitation and thrashing on CT table
-started on Klonopin twice daily as needed agitation
-Clonidine 0.1 mg a.m. as needed agitation, scheduled 0.2 mg at bedtime
-hold risperidone
- Psych consulted
patient with History of oppositional defiance disorder/Autism/Anxiety
10/11
Psych adjusted psych meds, added Zyprexa twice a day
#Scabies infestation to scalp and chest
-Appllied permethrin lotion
- Precautions due to active scabies infestation
#Mild rhabdomyolysis
Creatinine kinase elevated
- IV 0.45 Nss
#Mild transaminitis likely in setting of rhabdo
improved
#Prolonged QTc
-improved
#Mild hypernatremia
reolved
#Class I obesity�BMI 32.3
Affects aspects of care
Patiently current sedated and encephalopathic unable to discuss diet
Insomnia
May continue melatonin but hold Remeron due to prolonged QTc
CODE STATUS: Full code
DVT prophylaxis:Heparin
Diet: Regular diet
Disposition: Possible discharge tomorrow
Total time spent on today's encounter was 65 minutes which included time spent in counseling the patient/family regarding diagnosis and treatment plan as listed above, goals of care, and symptom management. Case was discussed with nursing staff,
specialists, and care coordinators/case management. All labs and imaging personally reviewed by me. Remainder the time spent in detailed review of previous records, lab data, imaging, and other medical provider documentation.
Anticipated Discharge: Within 24 hours
Subjective/Interval History
-
Date of Service: October 11, 2024
Patient is more awake than yesterday.
Objective Data
-
Labs:
Laboratory Results
10/11/24
07:57
WBC 9.3
Hgb 12.7 L
Hct 37.4 L
Plt Count 282
Sodium 137 D
Potassium 4.0
Chloride 108 H
Carbon Dioxide 19 L
BUN 7 L
Creatinine 0.5 L
Glucose 66 L
Calcium 8.7
Total Bilirubin 0.7
AST 46
ALT 55 H
Alkaline Phosphatase 56
Vital Signs:
Vital Signs
Temp Pulse Resp BP Pulse Ox
98.9 F 112 17 152/102 99
10/11/24 11:00 10/11/24 11:00 10/11/24 11:00 10/11/24 11:00 10/11/24 11:00
I&O
10/10/24 10/11/24 10/12/24
06:59 06:59 06:59
Intake Total 1040 / 1040 450 / 450
Output Total 375 / 375 1400 / 1400
Balance 665 / 665 -950 / -950
Physical Exam
-
General: Appears in Distress and Obese
HEENT: Normocephalic, [place] Conjunctivae and Nose Appears Normal
Respiratory: Rales and Non Labored Respirations
Cardiac: Regular Rhythm and S1/S2
Breast: Deferred by me
GI: Soft, Nontender, Nondistended and Normal Bowel Sounds
Genito-urinary: No Costovertebral Tender
Musculoskeletal: No Clubbing, No Cyanosis and No Edema
Skin: Lesions
Neuro: Awake, Alert, Oriented, AO x 3 and No Motor Deficits
Psych: Confused and Agitated
[2024-10-11 15:00] VITALS: BP 144/85
[2024-10-11 19:00] VITALS: BP 150/91
[2024-10-11] MEDS: MELATONIN 10 MG PO (21:04)
[2024-10-11] MEDS: CATAPRES 0.2 MG PO (21:05)
[2024-10-11] MEDS: FLUSH (NSS) 1 FLUSH IV (21:12)
[2024-10-11] MEDS: KLONOPIN 0.5 MG PO (22:44)
[2024-10-11 23:00] VITALS: BP 127/85
[2024-10-12] MEDS: 0.45%NACL 1000 IV (02:39)
[2024-10-12 03:00] VITALS: BP 127/88
[2024-10-12] MEDS: CILOXAN 0.3% OPHTHALMIC SOLUTION 2 DROP OPHTH ×3 (04:09→11:44)
[2024-10-12 07:00] VITALS: BP 133/91
[2024-10-12 08:22] LABS: Hematocrit 35.0 % (39.0-52.0); Hemoglobin 12.1 g/dL (13.0-18.0); Mean Corp Hgb Conc. 34.6 g/dL (33.0-37.0); Mean Corpuscular Volume 84.5 fL (80.0-94.0); Nucleated Red Blood Cells % 0 % (-); Platelet Count 266 10^3/uL (130-400); Red Cell Dist. Width 12.5 % (11.5-14.5)
[2024-10-12] MEDS: HEPARIN 5000 UNITS SC (08:46)
[2024-10-12] MEDS: TRILEPTAL 300 MG PO (08:47)
[2024-10-12] MEDS: ZYPREXA ZYDIS (ORALLY DISINTEGRATING) 5 MG PO (08:47)
[2024-10-12 08:48] LABS: ALT (SGPT) 49 U/L (0-50); AST (SGOT) 38 U/L (17-59); Albumin 3.5 g/dl (3.5-5.0); Alkaline Phosphatase 55 U/L (38-126); Blood Urea Nitrogen 6 mg/dl (9-20); Calcium 8.6 mg/dl (8.4-10.2); Carbon Dioxide 23 mmol/L (22-30); Chloride 105 mmol/L (98-107); Estimated Creatinine Clearance > 125 ml/min; Glucose 84 mg/dl (70-99); Potassium 3.4 mmol/L (3.5-5.1); Sodium 136 mmol/L (135-145); Total Protein 5.8 g/dl (6.3-8.2); eGFR > 60.00
--- NOTE | 2024-10-12 09:48 | W.PN.HOSP.TC ---
Today's Communication/Plan
-
Overall symptoms improved and patient will be discharged back to [facility].
Assessment / Plan
Assessment / Plan
Impression:
24-year-old male from [facility] for suspected karly. He was reportedly whispering to himself in front of ER physician did not acknowledge ER physician's presence. According to [facility] staff he has been
incarcerated since 10/04/2024 a total of 5 days. He refused medical intake and has not received any of his medications .according to 2 correctional officers at bedside during patient's rant he did state he was going to kill them, however they state
he is not in his right mind. He has active scabies admits throughout his hair, walters and chest hair. He has scabbed scratched areas to his chest due to scabies infestation. He is currently sedated with IV Versed unable to give review of systems.
He has history of autism, mood disorder, anxiety, intermittent violent behavior/ODD.
Psych adjusted medication and started on Zyprexa 5 mg twice daily.
Overall symptoms improved and patient will be discharged back to [facility].
Assessment/plan:
#Acute encephalopathy with agitation unclear etiology
UDS negative, acetaminophen/salicylate negative alcohol nondetected
Patient required 4 mg Versed for sedation due to extreme agitation and thrashing on CT table
-started on Klonopin twice daily as needed agitation
-Clonidine 0.1 mg a.m. as needed agitation, scheduled 0.2 mg at bedtime
-hold risperidone
- Psych consulted
patient with History of oppositional defiance disorder/Autism/Anxiety
10/11
Psych adjusted psych meds, added Zyprexa twice a day
10/12
Overall symptoms improved and patient will be discharged back to [facility].
#Scabies infestation to scalp and chest
-Appllied permethrin lotion
- Precautions due to active scabies infestation
#Mild rhabdomyolysis
Creatinine kinase elevated
- IV 0.45 Nss
#Mild transaminitis likely in setting of rhabdo
improved
#Prolonged QTc
-improved
#Mild hypernatremia
reolved
#Class I obesity�BMI 32.3
Affects aspects of care
Patiently current sedated and encephalopathic unable to discuss diet
Insomnia
May continue melatonin but hold Remeron due to prolonged QTc
CODE STATUS: Full code
DVT prophylaxis:Heparin
Diet: Regular diet
Disposition: Overall symptoms improved and patient will be discharged back to [facility].
Total time spent on today's encounter was 35 minutes which included time spent in counseling the patient/family regarding diagnosis and treatment plan as listed above, goals of care, and symptom management. Case was discussed with nursing staff,
specialists, and care coordinators/case management. All labs and imaging personally reviewed by me. Remainder the time spent in detailed review of previous records, lab data, imaging, and other medical provider documentation.
Anticipated Discharge: Today
Subjective/Interval History
-
Date of Service: October 12, 2024
Patient is more awake than yesterday.
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
Objective Data
-
Labs:
Laboratory Results
10/12/24
08:11
WBC 8.1
Hgb 12.1 L
Hct 35.0 L
Plt Count 266
Sodium 136
Potassium 3.4 L
Chloride 105
Carbon Dioxide 23
BUN 6 L
Creatinine 0.6 L
Glucose 84
Calcium 8.6
Total Bilirubin 0.6
AST 38
ALT 49
Alkaline Phosphatase 55
Vital Signs:
Vital Signs
Temp Pulse Resp BP Pulse Ox
99.6 F 90 20 133/91 100
10/12/24 07:00 10/12/24 07:00 10/12/24 07:00 10/12/24 07:00 10/12/24 07:00
I&O
10/11/24 10/12/24 10/13/24
06:59 06:59 06:59
Intake Total 450 / 450 1200 / 1200
Output Total 1400 / 1400 470 / 470
Balance -950 / -950 730 / 730
Physical Exam
-
General: Appears in Distress and Obese
HEENT: Normocephalic, [place] Conjunctivae and Nose Appears Normal
Respiratory: Rales and Non Labored Respirations
Cardiac: Regular Rhythm and S1/S2
Breast: Deferred by me
GI: Soft, Nontender, Nondistended and Normal Bowel Sounds
Genito-urinary: No Costovertebral Tender
Musculoskeletal: No Clubbing, No Cyanosis and No Edema
Skin: Lesions
Neuro: Awake, Alert and Other (Confused)
Psych: Confused
--- NOTE | 2024-10-12 09:55 | W.DCSUMMARY ---
Addendum entered and electronically signed by Ritchie Whitehead MD 10/12/24 11:39:
Homicidal ideation is not a valid diagnosis for this patient
Original Note:
Discharge Summary
Discharge Data
Date of Admission: 10/09/24
Date of Discharge: 10/12/24
Total time spent discharging patient (in min): 40
-
Pending Results: No
Hospital Course
Hospital course
24-year-old male from [facility] for suspected karly. He was reportedly whispering to himself in front of ER physician did not acknowledge ER physician's presence. [facility] staff he has been
incarcerated since 10/04/2024 a total of 5 days. He refused medical intake and has not received any of his medications .according to 2 correctional officers at bedside during patient's rant he did state he was going to kill them, however they state
he is not in his right mind. He has active scabies admits throughout his hair, walters and chest hair. He has scabbed scratched areas to his chest due to scabies infestation. He is currently sedated with IV Versed unable to give review of systems.
He has history of autism, mood disorder, anxiety, intermittent violent behavior/ODD.
Psych adjusted medication and started on Zyprexa 5 mg twice daily.
Overall symptoms improved and patient will be discharged back to [facility].
During hospitalization patient was treated from the following
#Acute encephalopathy with agitation unclear etiology
UDS negative, acetaminophen/salicylate negative alcohol nondetected
Patient required 4 mg Versed for sedation due to extreme agitation and thrashing on CT table
-started on Klonopin twice daily as needed agitation
-Clonidine 0.1 mg a.m. as needed agitation, scheduled 0.2 mg at bedtime
-hold risperidone
- Psych consulted
patient with History of oppositional defiance disorder/Autism/Anxiety
10/11
Psych adjusted psych meds, added Zyprexa twice a day
10/12
Overall symptoms improved and patient will be discharged back to [facility].
#Scabies infestation to scalp and chest
-Appllied permethrin lotion
- Precautions due to active scabies infestation
#Mild rhabdomyolysis
Creatinine kinase elevated
- IV 0.45 Nss
#Mild transaminitis likely in setting of rhabdo
improved
#Prolonged QTc
-improved
#Mild hypernatremia
reolved
#Class I obesity�BMI 32.3
Affects aspects of care
Patiently current sedated and encephalopathic unable to discuss diet
Insomnia
May continue melatonin but hold Remeron due to prolonged QTc
CODE STATUS: Full code
DVT prophylaxis:Heparin
Diet: Regular diet
Disposition: Overall symptoms improved and patient will be discharged back to [facility].
Total time spent on today's encounter was 40 minutes which included time spent in counseling the patient/family regarding diagnosis and treatment plan as listed above, goals of care, and symptom management. Case was discussed with nursing staff,
specialists, and care coordinators/case management. All labs and imaging personally reviewed by me. Remainder the time spent in detailed review of previous records, lab data, imaging, and other medical provider documentation.
Anticipated Discharge: Today
Discharge Plan
-
Patient Disposition: [facility]
Discharge Diagnosis/Procedures: Acute metabolic encephalopathy
Rhabdomyolysis.
Acute psychosis
Diet: As tolerated
Activity: With assistance and As tolerated
Referrals:
[facility] [Family Provider, General]
Manfred Aguirre MD [Active, Psychiatry] - in two to three weeks
Prescriptions:
New
clonidine HCl 0.2 mg Tablet
0.2 mg PO HS Qty: 30 0RF
clonazepam 0.5 mg Tablet
0.5 mg PO BIDPRN PRN (Reason: agitation) Qty: 30 0RF
olanzapine 5 mg Tablet,Disintegrating
5 mg PO BID Qty: 60 0RF
Continued
oxcarbazepine 300 MG tablet
300 mg PO BID Qty: 60 0RF
melatonin 5 mg Tablet
5 mg PO HSPRN PRN (Reason: SLEEP) Qty: 30 0RF
clonidine HCl 0.1 mg Tablet
0.1 mg PO DAILYPRN PRN (Reason: increased agitation) Qty: 30 0RF
Discontinued
risperidone [Risperdal] 1 MG tablet
1 mg PO DAILY
clonidine HCl 0.3 mg Tablet
0.3 mg PO HS
mirtazapine 15 mg Tablet
15 mg PO HS
risperidone [Risperdal] 4 mg Tablet
4 mg PO HS
Discharge Orders:
Discharge Patient (As Directed); Ordered 10/12/24
Ordered By: Ritchie Whitehead
Discharge Date and Time
Print Language: ICELANDIC
--- NOTE | 2024-10-12 09:58 | CM ---
Patient to return to [facility] today. Guards to transport.
[facility]
[phone]
[2024-10-12 11:00] VITALS: BP 129/86
[2024-10-12] MEDS: KCL ELIXIR 40 MEQ PO (11:44)
== END 2024-10-12 12:30 | DRG 71 ==
LOC: 4 WEST ACU 18:07
PROVIDERS: Clinical Nurse Specialist Family Health; ADMITTING PHYSICIAN General Practice; CONSULT PHYSICIAN Psychiatry & Neurology Psychiatry; EMERGENCY PHYSICIAN Emergency Medicine
DX: G93.41 Metabolic encephalopathy (principal); E87.0 Hyperosmolality and hypernatremia; M62.82 Rhabdomyolysis; F23 Brief psychotic disorder; F84.5 Asperger's syndrome; B86 Scabies; F41.9 Anxiety disorder, unspecified; Z68.32 Body mass index [BMI] 32.0-32.9, adult; E66.811 Obesity, class 1; G47.00 Insomnia, unspecified; F39 Unspecified mood [affective] disorder; D72.829 Elevated white blood cell count, unspecified; F42.9 Obsessive-compulsive disorder, unspecified; Z79.899 Other long term (current) drug therapy
CPT/HCPCS: 70450; 80053; 80143; 80156; 80179; 80306; 82077; 82550; 85025; 86780; 87070; 93005; 96365; 96375; 96376; 99285

== ENCOUNTER 2024-11-10 15:27 | Emergency (ER) | payer OTHER, SELFPAY ==
[2024-11-10 15:32] VITALS: BP 123/78
--- NOTE | 2024-11-10 20:55 | ED.GENMED ---
History of Present Illness
General
Chief Complaint: Social Service Referral
Source: patient
Exam Limitations: none
Time Seen by Provider: 11/10/24 16:25
Nursing documentation reviewed up to this point in time: agreed with
History of Present Illness
History of Present Illness:
pt is a 24 y/o M with h/o autism, asperger's syndrome, OCD
here freuqnetly well known to department
multiple complaints
says he saw a scary show on tv and was scared
arrested a few weeks ago and placed on new psych meds, including haldol and is worried now that haldol causes some interactions with other meds and that he needs to be checked out
he also has seen his psychaitrist who is aware of the haldol
he also says he has nasal congesion and thnks he needs to be checked for 'all the viruses'
and ultimately just asks that he get fed a meal and that he have a shower because he has poor hygiene
pt has no fever, cough, vomiting, cp, sob
he is his usual state of health
Past History
Past History
ED Past Medical History: Psychiatric (Mood disorder, autism, intermittent violent behavior issues, Anxiety, ODD, ) and Other (Asperger's syndrome)
ED Past Surgical History: None
Social History
Tobacco: Non-smoker
Alcohol: None
Drug: None
Personal: Single
Living: with family
Employment: Not employed
Family History
Family History: Other (Noncontributory)
Review of Systems
Review of Systems
Allergies reviewed?: Yes
All Other Systems: Not applicable
Phy Exam
Physical Exam
Physical Exam:
GENERAL: Alert , standing in the doorway
EYE: strabismus; and constant nystagmus
pupils reactive
NECK: Supple
ENT: o/p clr, mmm.
no pharyngeal erythema
CARDIAC: Regular rate and rhythm .
LUNGS: Clear breath sounds bilaterally, no acute respiratory distress, no wheezes/rales/rhonchi
ABDOMEN: Soft, without focal tenderness, no r/g, no cvat, normal bowel sounds
NEUROLOGICAL: Alert and oriented, no focal neuro deficits
SKIN: Warm and dry, skin intact.
MUSCULOSKELETAL: No edema, well perfused. neg fabio's sign
PSYCH: perseverating, tangential; no SI, calm
Course
Vital Signs
Initial and Last Documented VS:
Initial Vital Signs
Temp Pulse Resp BP Pulse Ox
36.9 C 98 18 123/78 97
11/10/24 15:32 11/10/24 15:32 11/10/24 15:32 11/10/24 15:32 11/10/24 15:32
Last Documented Vital Signs
Temp Pulse Resp BP Pulse Ox
36.9 C 98 18 123/78 97
11/10/24 15:32 11/10/24 15:32 11/10/24 15:32 11/10/24 15:32 11/10/24 15:32
MDM/Problems Addressed
Differential Diagnosis Includes:
medical screening
MDM/Problems Addressed:
24 y/o M
frequently here in the department for multiple complaints
mostly juts asking for a place to stay for food and shower
pt does live at home with mother
he has no signs of sepsis today
his exam is baseline
no SI/HI or need for crisis
as pt was being interviewed he would change from topic to topic requesting tests, blood work, and ultiamtely just food and shower.
he was given lunch box which he ate
d/c home.
*Pulse Oximetry
SaO2: 97
Oxygen Mode of Delivery: Room air
Patient hypoxic: no (97)
*Critical Care Note
Total Time (30-74mins, 75-104mins- exclusive of procedures): Not Applicable
ED Attending Note
-
Portions of this chart may have been created with voice recognition software.� Occasional wrong word or��sound alike� substitutions may have occurred due to the inherent limitations of voice recognition software.
Discharge Plan
Departure
Patient Disposition: Home (Routine Discharge)
Date of Disposition: 11/10/24
Time of Disposition: 16:44
Patient with high blood pressure during this ER visit?: No
Condition: Fair
Covid-19: Not Applicable
Discharge Problem:
Encounter for medical screening examination
Instructions: [place] diet
Prescriptions:
No Action
clonidine HCl 0.2 mg Tablet
0.2 mg PO HS Qty: 30 0RF
olanzapine 5 mg Tablet,Disintegrating
5 mg PO BID Qty: 60 0RF
oxcarbazepine 300 MG tablet
300 mg PO BID Qty: 60 0RF
melatonin 5 mg Tablet
5 mg PO HSPRN PRN (Reason: SLEEP) Qty: 30 0RF
clonidine HCl 0.1 mg Tablet
0.1 mg PO DAILYPRN PRN (Reason: increased agitation) Qty: 30 0RF
clonazepam 0.5 mg Tablet
0.5 mg PO BIDPRN PRN (Reason: agitation) Qty: 10 0RF
permethrin 5 % cream
1 applic topical Q14D Qty: 60 0RF
Rx Instructions:
apply after one week, patient received a dose here
Referrals:
Rafa Meneses, DO [Family Provider, Family Practice]
Activity Restrictions/Additional Instructions:
YOU CAN FOLLOW UP WITH YOUR FAMILY DOCTOR FOR FURTHER TESTING
Interventions
Interventions:
*Risk Screen - Suicide Last Done: 11/10/24 16:53
*General Assessment Last Done: 11/10/24 16:53
*Neglect/Abuse Screening Last Done: 11/10/24 16:55
*ED- Fall Risk Assessment Last Done: 11/10/24 16:55
*ED COVID-19 Vaccine History Last Done: 11/10/24 16:53
*Nursing Disposition Last Done: 11/10/24 16:55
ED-Psychological Assessment Last Done: 11/10/24 16:53
Discharge Date and Time
Discharge Date/Time: 11/10/24 16:56
Print Language: LUXEMBOUR[place]
== END 2024-11-10 16:56 | disposition home or self-care (01) ==
LOC: EMR 15:27
PROVIDERS: EMERGENCY PHYSICIAN Emergency Medicine; FAMILY PHYSICIAN Family Medicine
DX: Z13.89 Encounter for screening for other disorder (principal); Y93.E1 Activity, personal bathing and showering; F84.5 Asperger's syndrome; F42.9 Obsessive-compulsive disorder, unspecified; F41.9 Anxiety disorder, unspecified; F91.3 Oppositional defiant disorder; F39 Unspecified mood [affective] disorder
CPT/HCPCS: 99282

== ENCOUNTER 2024-11-14 23:19 | Emergency (ER) | payer OTHER, SELFPAY ==
[2024-11-14 23:24] VITALS: BP 142/84
[2024-11-15 05:04] LABS: COVID-19 Antigen Negative (Negative)
--- NOTE | 2024-11-15 05:09 | ED.GENMED ---
History of Present Illness
General
Chief Complaint: Cough
Source: patient and ambulance crew
Exam Limitations: none
Time Seen by Provider: 11/15/24 04:05
Nursing documentation reviewed up to this point in time: agreed with
History of Present Illness
History of Present Illness:
Note:
CHIEF COMPLAINT(S)
Fluctuating blood pressure, fever, suspected COVID-19 infection, and adverse medication effects.
HISTORY OF PRESENT ILLNESS
The patient is a 24-year-old male presenting with concerns about fluctuating blood pressure and feeling very sick, describing a sensation of fever 'in my cheeks.' He suspects having a COVID-19 infection, noting symptoms like a dry, repetitive cough
and feeling very ill. The patient also reports serious adverse effects from a medication identified as 'Haldol,' received recently from an inpatient hospital setting. He experiences tremors, nervousness, and leg shaking and expresses concern,
stating, �I'm worried if I take it again, I might .� The patient also expresses anxiety about undergoing a COVID-19 nasal swab due to a history of violent reactions, including nausea. He relates this current encounter to a similar situation that
occurred in 2019.
Regarding urological concerns, the patient mentions increased frequency of urination at night with small amounts and difficulty emptying the bladder. He mentions a need for proper hygiene prior to urine sampling. He describes partaking in frequent
masturbation but states this is not a current issue impacting his care.
PLAN
1. Perform a COVID-19 nasal swab test.
2. Obtain a urine sample for analysis.
3. Monitor for adverse reactions to the COVID swab.
4. Address any significant findings from test results once available.
DIFFERENTIAL DIAGNOSIS
The Differential Diagnosis includes, in no particular order and is not limited to:
1. COVID-19 infection
2. Urinary tract infection
3. Medically induced tremors
4. Anxiety-related symptoms
5. Essential tremor
6. Adverse medication reaction
7. Viral upper respiratory infection
8. Hypertension or blood pressure fluctuations
9. Prostatitis
10. Hyperthyroidism
PHYSICAL EXAM
General: Alert, no acute distress. Pacing around the room, playing on his laptop.
Skin: Warm, dry.
Head: Normocephalic, atraumatic.
Neck: Supple, trachea midline.
Eye Ears, nose, mouth and throat: Oral mucosa moist.
Cardiovascular: Normal peripheral perfusion, no edema.
Respiratory: Respirations are non-labored. No respiratory distress
Gastrointestinal: Abdomen nondistended.
Musculoskeletal: Normal ROM, normal strength.
Neurological: Alert and oriented to person, place, time, and situation, no focal neurological deficit observed.
PROBLEM LIST
Acute Problems:
- Possible COVID-19 infection
- Urological concerns
- Adverse effects from Paladol
Chronic Medical Conditions:
- Hypertension (fluctuating blood pressure)
CARE-UPDATE
11/15/24 - 05:21
Patients COVID test result is negative. Awaiting urine sample for further evaluation.
Past History
Past History
ED Past Medical History: Psychiatric (Mood disorder, autism, intermittent violent behavior issues, Anxiety, ODD, ) and Other (Asperger's syndrome)
ED Past Surgical History: None
Social History
Tobacco: Non-smoker
Alcohol: None
Drug: None
Personal: Single
Living: with family
Employment: Not employed
Family History
Family History: Other (Noncontributory)
Phy Exam
Physical Exam
Physical Exam:
.
Course
Orders/Labs/Results
Orders:
Orders
11/15/24 04:24
COVID-19 Antigen Urgent
Source: Nasal Swab
11/15/24 05:43
Urinalysis Reflex To Culture Urgent
Date Specimen was Collected: 11/15/24
Time Specimen was Collected: 05:42
Vital Signs
Initial and Last Documented VS:
Initial Vital Signs
Temp Pulse Resp BP Pulse Ox
99.4 F 114 20 142/84 95
11/14/24 23:24 11/14/24 23:24 11/14/24 23:24 11/14/24 23:24 11/14/24 23:24
Last Documented Vital Signs
Temp Pulse Resp BP Pulse Ox
99.4 F 114 19 142/84 95
11/14/24 23:24 11/14/24 23:24 11/15/24 04:59 11/14/24 23:24 11/15/24 06:11
*Pulse Oximetry
SaO2: 95
Oxygen Mode of Delivery: Room air
Patient hypoxic: no
*Critical Care Note
Total Time (30-74mins, 75-104mins- exclusive of procedures): Not Applicable
Update Note
Update Note:
Patient drinking fluids. Will follow-up with urology as needed
ED Attending Note
-
Portions of this chart may have been created with voice recognition software.� Occasional wrong word or��sound alike� substitutions may have occurred due to the inherent limitations of voice recognition software.
Discharge Plan
Departure
Patient Disposition: Home (Routine Discharge)
Date of Disposition: 11/15/24
Time of Disposition: 06:06
Patient with high blood pressure during this ER visit?: No
Condition: Fair
Discharge Problem:
Cough, Urinary frequency
Instructions: Cough, Adult (DC)
Prescriptions:
No Action
clonidine HCl 0.2 mg Tablet
0.2 mg PO HS Qty: 30 0RF
olanzapine 5 mg Tablet,Disintegrating
5 mg PO BID Qty: 60 0RF
oxcarbazepine 300 MG tablet
300 mg PO BID Qty: 60 0RF
melatonin 5 mg Tablet
5 mg PO HSPRN PRN (Reason: SLEEP) Qty: 30 0RF
clonidine HCl 0.1 mg Tablet
0.1 mg PO DAILYPRN PRN (Reason: increased agitation) Qty: 30 0RF
clonazepam 0.5 mg Tablet
0.5 mg PO BIDPRN PRN (Reason: agitation) Qty: 10 0RF
permethrin 5 % cream
1 applic topical Q14D Qty: 60 0RF
Rx Instructions:
apply after one week, patient received a dose here
Referrals:
Rafa Meneses DO [Family Provider, Family Practice]
Kenneth Claros MD [Active, Urology]
Interventions
Interventions:
*Risk Screen - Suicide Last Done: 11/15/24 04:18
*General Assessment Last Done: 11/15/24 04:18
*Neglect/Abuse Screening Last Done: 11/15/24 04:18
*ED- Fall Risk Assessment Last Done: 11/15/24 04:18
*ED COVID-19 Vaccine History Last Done: 11/15/24 04:18
*Nursing Disposition Last Done: 11/15/24 06:26
ED- Pulmonary Assessment Last Done: 11/15/24 04:18
Discharge Date and Time
Discharge Date/Time: 11/15/24 06:26
Print Language: [place]INGAPORE[place]
[2024-11-15 05:51] LABS: Urine Character Clear (Clear)
== END 2024-11-15 06:26 | disposition home or self-care (01) ==
LOC: EMR 23:19
PROVIDERS: EMERGENCY PHYSICIAN Student in an Organized Health Care Education/Training Program; FAMILY PHYSICIAN Family Medicine
DX: R05.9 Cough, unspecified (principal); R35.0 Frequency of micturition; F39 Unspecified mood [affective] disorder; F84.0 Autistic disorder; F91.3 Oppositional defiant disorder; F41.9 Anxiety disorder, unspecified; I10 Essential (primary) hypertension
CPT/HCPCS: 99283; 81003; 87811